=== PATIENT | female | born 1960 | race Caucasian/White ===

== ENCOUNTER → 2017-05-07 | Outpatient (CLI) | payer BC ==
--- NOTE | 2017-05-10 07:54 | MM ---
Reason for exam: screening (asymptomatic). Last mammogram was performed 1 year and 5 months ago. History: Patient is postmenopausal. Physical Findings: A clinical breast exam by your physician is recommended on an annual basis and results should be correlated with mammographic findings. MG Screening Mammo w CAD Bilateral CC and MLO view(s) were taken. Prior study comparison: December 04, 2015, mammogram, performed at [facility]. August 04, 2014, mammogram, performed at [facility]. The breast tissue is heterogeneously dense. This may lower the sensitivity of mammography. Finding: There are typically benign round calcifications in the right breast. There is no discrete abnormality. ASSESSMENT: Benign, BI-RAD 2 RECOMMENDATION: Routine screening mammogram of both breasts in 1 year.
== END | disposition home or self-care (01) ==
LOC: RADMAMWWP 16:47
PROVIDERS: ATTEND Family Medicine
DX: Z12.31 Encounter for screening mammogram for malignant neoplasm of breast (principal)

== ENCOUNTER → 2018-05-23 | Outpatient (CLI) | payer BC ==
--- NOTE | 2018-05-29 11:08 | MM ---
Reason for exam: screening (asymptomatic). Last mammogram was performed 1 year and 1 month ago. History: Patient is postmenopausal. Physical Findings: A clinical breast exam by your physician is recommended on an annual basis and results should be correlated with mammographic findings. MG 3D Screening Mammo W/Cad Bilateral CC and MLO view(s) were taken. Prior study comparison: May 07, 2017, bilateral MG screening mammo w CAD. December 04, 2015, mammogram, performed at [facility]. The breast tissue is heterogeneously dense. This may lower the sensitivity of mammography. No suspicious abnormality. No significant changes when compared with prior studies. ASSESSMENT: Negative, BI-RAD 1 RECOMMENDATION: Routine screening mammogram of both breasts in 1 year.
== END | disposition home or self-care (01) ==
LOC: RADMAMWWP 07:02
PROVIDERS: ATTEND Family Medicine
DX: Z12.31 Encounter for screening mammogram for malignant neoplasm of breast (principal)
CPT/HCPCS: 77063; 77067

== ENCOUNTER 2024-11-03 11:56 | Inpatient (IN) | payer BC ==
--- NOTE | 2024-11-03 12:36 | ED ---
General Adult HPI - General Chief complaint: Weakness Stated complaint: Weakness Time Seen by Provider: 11/03/24 11:58 Source: patient, EMS, RN notes reviewed, old records reviewed Mode of arrival: EMS Limitations: no limitations - History of Present Illness Initial comments: 64-year-old female with history of lung CA with brain metastases presenting for evaluation of generalized weakness, poor appetite, nausea. Symptoms have been progressive over the past several weeks. Patient has known brain metastases and is currently on Decadron. She just completed 10 days of whole brain radiation and is currently on oral chemotherapy. She denies fever. She does report some chills. She reports nausea and poor appetite. No chest or abdominal pain. No dysuria. Patient reports very dark urine. - Related Data Home Medications Medication Instructions Recorded Confirmed Adagrasib [Krazati] 600 mg PO BID 11/03/24 11/03/24 Ergocalciferol (Vitamin D2) 1,250 mcg PO WE 11/03/24 11/03/24 [Drisdol (50,000 Iu)] Ipratropium/Albuter 20-100Mcg 1 puff INHALATION RT-Q6H PRN MDD 6 11/03/24 11/03/24 [Combivent Respimat 20-100Mcg PUFFS Inhaler] L.acidoph,Paracasei, B.lactis 1 cap PO DAILY 11/03/24 11/03/24 [Probiotic] Levothyroxine Sodium [Synthroid] 75 mcg PO DAILY 11/03/24 11/03/24 Lisinopril-Hctz 20-25 mg 1 tab PO DAILY 11/03/24 11/03/24 [Zestoretic 20-25] Ondansetron [Zofran] 4 - 8 mg PO Q4H PRN MDD 8 tabs 11/03/24 11/03/24 Pantoprazole [Protonix] 40 mg PO DAILY 11/03/24 11/03/24 amLODIPine [Norvasc] 5 mg PO DAILY 11/03/24 11/03/24 dexAMETHasone [Decadron] See Taper PO DIRECTED 11/03/24 11/03/24 Allergies Allergy/AdvReac Type Severity Reaction Status Date / Time ceftriaxone [From Rocephin] Allergy Rash/Hives, Verified 11/03/24 12:59 Tongue swelling Review of Systems ROS Statement: Those systems with pertinent positive or pertinent negative responses have been documented in the HPI. ROS Other: All systems not noted in ROS Statement are negative. Past Medical History Past Medical History: Cancer, Hypertension, Thyroid Disorder Additional Past Medical History / Comment(s): Lung CA and brain CA as of August 2024 History of Any Multi-Drug Resistant Organisms: None Reported Past Surgical History: Hysterectomy Past Psychological History: No Psychological Hx Reported Smoking Status: Former smoker Past Alcohol Use History: Occasional Past Drug Use History: None Reported General Exam Limitations: no limitations General appearance: alert, in no apparent distress Head exam: Present: atraumatic, normocephalic Eye exam: Present: normal appearance, PERRL ENT exam: Present: mucous membranes dry Neck exam: Present: normal inspection. Absent: tenderness, meningismus Respiratory exam: Present: normal lung sounds bilaterally. Absent: respiratory distress, wheezes Cardiovascular Exam: Present: regular rate, normal rhythm GI/Abdominal exam: Present: soft. Absent: distended, tenderness, guarding Extremities exam: Present: normal inspection, normal capillary refill Neurological exam: Present: alert, oriented X3, CN II-XII intact, motor sensory deficit (Bilateral lower extremity weakness) Skin exam: Present: warm, dry, intact Course Vital Signs 11/03/24 11/03/24 12:04 13:26 Temperature 97.7 F 97.9 F Pulse Rate 84 84 Respiratory 18 20 Rate Blood Pressure 136/77 139/79 O2 Sat by Pulse 97 97 Oximetry Medical Decision Making - Medical Decision Making Was pt. sent in by a medical professional or institution (, PA, CARRIAGE OPERATOR, urgent care, hospital, or halfway...) When possible be specific @ -No Did you speak to anyone other than the patient for history (EMS, parent, family, police, friend...)? What history was obtained from this source @ -No Did you review nursing and triage notes (agree or disagree)? Why? @ -I reviewed and agree with nursing and triage notes Were old charts reviewed (outside hosp., previous admission, EMS record, old EKG, old radiological studies, urgent care reports/EKG's, halfway records)? Report findings @ -No old charts were reviewed Differential Weakness: Hypoglycemia, shock, sepsis, hyponatremia, anemia, infection, IA, ETOH, adverse medicine reaction, overdose, stroke, this is not meant to be an all-inclusive list. EKG interpreted by me (3pts min.). @ -Sinus rhythm rate of 82, UT interval 182, QRS duration 83, QTc [address] segment elevation. X-rays interpreted by me (1pt min.). @Chest x-ray there is negative for acute cardiopulmonary findings CT interpreted by me (1pt min.). @ -None done U/S interpreted by me (1pt. min.). @ -None done What testing was considered but not performed or refused? (CT, X-rays, U/S, labs)? Why? @ -None What meds were considered but not given or refused? Why? @ -None Did you discuss the management of the patient with other professionals (professionals i.e. , BRODY, CARRIAGE OPERATOR, lab, RT, psych nurse, social services assistant, awning frame maker, teacher, natural resource officer, shoe caser)? Give summary @Dr. Perea Was smoking cessation discussed for >3mins.? @ -No Was critical care preformed (if so, how long)? @ -No Were there social determinants of health that impacted care today? How? (Homelessness, low income, unemployed, alcoholism, drug addiction, transportation, low edu. Level, literacy, decrease access to med. care, halfway, rehab)? @ -No Was there de-escalation of care discussed even if they declined (Discuss DNR or withdrawal of care, Hospice)? DNR status @ -No What co-morbidities impacted this encounter? (DM, HTN, Smoking, COPD, CAD, Cancer, CVA, ARF, Chemo, Hep., AIDS, mental health diagnosis, sleep apnea, mo rbid obesity)? @ -Metastatic lung CA Was patient admitted / discharged? Hospital course, mention meds given and route, prescriptions, significant lab abnormalities, going to OR and other pertinent info. @64-year-old female presenting for evaluation of generalized weakness. Patient is currently being treated for metastatic lung cancer. She states that she has had poor oral intake and reduced urine output. Patient has a lactic acid of 4 which I suspect is from dehydration and not acute infection or sepsis. Sodium is 121. Patient is given a bolus of normal saline and placed on 100 cc/h. Brody hernandez admitted with generalized weakness, hyponatremia, dehydration. Case discussed with Dr. Perea who will admit. Undiagnosed new problem with uncertain prognosis? @ -No Drug Therapy requiring intensive monitoring for toxicity (Heparin, Nitro, Insulin, Cardizem)? @ -No Were any procedures done? @ -No Diagnosis/symptom? @ -Hyponatremia, dehydration, generalized weakness Acute, or Chronic, or Acute on Chronic? @ -Acute Uncomplicated (without systemic symptoms) or Complicated (systemic symptoms)? @ -Default Side effects of treatment? @ -No Exacerbation, Progression, or Severe Exacerbation? @ -No Poses a threat to life or bodily function? How? (Chest pain, USA, IA, pneumonia, PE, COPD, DKA, ARF, appy, cholecystitis, CVA, Diverticulitis, Homicidal, Suicidal, threat to staff... and all critical care pts) @ -Yes, electrolyte abnormality, hyponatremia, hypovolemia - Lab Data Result diagrams: 11/03/24 12:59 11/03/24 12:59 Lab Results 11/03/24 11/03/24 11/03/24 Range/Units 12:59 12:59 12:59 WBC 9.9 (3.8-10.6) k/uL RBC 3.23 L (3.80-5.40) m/uL Hgb 11.0 L (11.4-16.0) gm/dL Hct 29.3 L (34.0-46.0) % MCV 90.9 (80.0-100.0) fL MCH 34.2 (25.0-35.0) pg MCHC 37.6 H (31.0-37.0) g/dL RDW 16.8 H (11.5-15.5) % Plt Count 114 L (150-450) k/uL MPV 6.6 Neutrophils % (Manual) 77 % Band Neuts % (Manual) 7 % Lymphocytes % Not Reportable Lymphocytes % (Manual) 11 % Monocytes % Not Reportable Monocytes % (Manual) 2 % Eosinophils % Not Reportable Basophils % Not Reportable Metamyelocytes % 1 % Myelocytes % 3 % Neutrophils # Not Reportable Lymphocytes # Not Reportable Monocytes # Not Reportable Eosinophils # Not Reportable Basophils # Not Reportable Nucleated RBCs 0 (0-0) /100 WBC Manual Slide Review Performed Hyperchromasia Slight Anisocytosis Slight PT 10.1 (10.0-12.5) sec INR 0.9 (<1.2) APTT 18.0 L (22.0-30.0) sec Sodium 121 L (137-145) mmol/L Potassium 4.7 (3.5-5.1) mmol/L Chloride 89 L (98-107) mmol/L Carbon Dioxide 19 L (22-30) mmol/L Anion Gap 13 mmol/L BUN 31 H (7-17) mg/dL Creatinine 0.57 (0.52-1.04) mg/dL Est GFR (CKD-EPI)AfAm >90 (>60 ml/min/1.73 sqM) Est GFR (CKD-EPI)NonAf >90 (>60 ml/min/1.73 sqM) Glucose 192 H (74-99) mg/dL Plasma Lactic Acid Wily (0.7-2.0) mmol/L Calcium 9.4 (8.4-10.2) mg/dL Magnesium 2.5 H (1.6-2.3) mg/dL Total Bilirubin 1.7 H (0.2-1.3) mg/dL AST 27 (14-36) U/L ALT 49 H (4-34) U/L Alkaline Phosphatase 40 (38-126) U/L Troponin I (0.000-0.034) ng/mL Total Protein 6.5 (6.3-8.2) g/dL Albumin 4.5 (3.5-5.0) g/dL Influenza Type A (PCR) (Not Detectd) Influenza Type B (PCR) (Not Detectd) RSV (PCR) (Not Detectd) SARS-CoV-2 (PCR) (Not Detectd) 11/03/24 11/03/24 11/03/24 Range/Units 12:59 12:59 12:59 WBC (3.8-10.6) k/uL RBC (3.80-5.40) m/uL Hgb (11.4-16.0) gm/dL Hct (34.0-46.0) % MCV (80.0-100.0) fL MCH (25.0-35.0) pg MCHC (31.0-37.0) g/dL RDW (11.5-15.5) % Plt Count (150-450) k/uL MPV Neutrophils % (Manual) % Band Neuts % (Manual) % Lymphocytes % Lymphocytes % (Manual) % Monocytes % Monocytes % (Manual) % Eosinophils % Basophils % Metamyelocytes % % Myelocytes % % Neutrophils # Lymphocytes # Monocytes # Eosinophils # Basophils # Nucleated RBCs (0-0) /100 WBC Manual Slide Review Hyperchromasia Anisocytosis PT (10.0-12.5) sec INR (<1.2) APTT (22.0-30.0) sec Sodium (137-145) mmol/L Potassium (3.5-5.1) mmol/L Chloride (98-107) mmol/L Carbon Dioxide (22-30) mmol/L Anion Gap mmol/L BUN (7-17) mg/dL Creatinine (0.52-1.04) mg/dL Est GFR (CKD-EPI)AfAm (>60 ml/min/1.73 sqM) Est GFR (CKD-EPI)NonAf (>60 ml/min/1.73 sqM) Glucose (74-99) mg/dL Plasma Lactic Acid Wily 4.0 H* (0.7-2.0) mmol/L Calcium (8.4-10.2) mg/dL Magnesium (1.6-2.3) mg/dL Total Bilirubin (0.2-1.3) mg/dL AST (14-36) U/L ALT (4-34) U/L Alkaline Phosphatase (38-126) U/L Troponin I <0.012 (0.000-0.034) ng/mL Total Protein (6.3-8.2) g/dL Albumin (3.5-5.0) g/dL Influenza Type A (PCR) Not Detected (Not Detectd) Influenza Type B (PCR) Not Detected (Not Detectd) RSV (PCR) Not Detected (Not Detectd) SARS-CoV-2 (PCR) Not Detected (Not Detectd) Disposition Clinical Impression: Hyponatremia, Dehydration Disposition: ADMITTED IP TO THIS [facility] Condition: Stable Is patient prescribed a controlled substance at d/c from ED?: No Referrals: Nonstaff,Physician [Primary Care Provider] - 1-2 days Time of Disposition: 14:26
[2024-11-03 13:11] LABS: Anisocytosis Slight; HCT 29.3 % (34.0-46.0); Hyperchromasia Slight; MCH 34.2 pg (25.0-35.0); MCHC 37.6 g/dL (31.0-37.0); MCV 90.9 fL (80.0-100.0); Mean Platelet Volume 6.6; Platelet Count 114 k/uL (150-450); RBC 3.23 m/uL (3.80-5.40); RDW 16.8 % (11.5-15.5); WBC 9.9 k/uL (3.8-10.6)
[2024-11-03 13:21] LABS: African American GFR (CKD) >90 (>60 ml/min/1.73 sqM); Albumin 4.5 g/dL (3.5-5.0); Anion Gap 13 mmol/L; Blood Urea Nitrogen 31 mg/dL (7-17); Calcium 9.4 mg/dL (8.4-10.2); Carbon Dioxide 19 mmol/L (22-30); Chloride 89 mmol/L (98-107); Glucose 192 mg/dL (74-99); Non-African American GFR(CKD) >90 (>60 ml/min/1.73 sqM); Sodium 121 mmol/L (137-145); Total Bilirubin 1.7 mg/dL (0.2-1.3); Total Protein 6.5 g/dL (6.3-8.2)
--- NOTE | 2024-11-03 13:23 | XR ---
EXAMINATION TYPE: XR chest 2V DATE OF EXAM: 11/03/2024 CLINICAL HISTORY: Weakness TECHNIQUE: Frontal and lateral views of the chest are obtained. COMPARISON: Outside chest x-ray 2010 FINDINGS: There is new left subclavian Mediport catheter terminating before the SVC. Overlying EKG le ads are present. There is no focal air space opacity, pleural effusion, or pneumothorax seen. The ca rdiac silhouette size is within normal limits. The osseous structures are intact. IMPRESSION: No acute cardiopulmonary process. [facility], , 11/03/2024 1:20 PM
[2024-11-03] MEDS: SODIUM CHLORIDE 0.9% 1,000 ML IV STA (13:25)
[2024-11-03 13:28] LABS: INR 0.9 (<1.2); Prothrombin Time 10.1 sec (10.0-12.5)
[2024-11-03 13:29] LABS: ALT 49 U/L (4-34); AST 27 U/L (14-36); Alkaline Phosphatase 40 U/L (38-126); Magnesium 2.5 mg/dL (1.6-2.3); Potassium 4.7 mmol/L (3.5-5.1)
[2024-11-03 13:44] LABS: Influenza A Not Detected (Not Detectd); Influenza B Not Detected (Not Detectd); RSV Not Detected (Not Detectd)
[2024-11-03 14:07] LABS: Band Neutrophils % 7 %; Metamyelocytes % 1 %; Myelocytes % 3 %; Neutrophils % (M) 77 %; Nucleated Red Blood Cells 0 /100 WBC (0-0); Total Cells Counted 200
[2024-11-03] MEDS: SODIUM CHLORIDE 0.9% 1,000 ML IV SCH (14:10)
[2024-11-03] MEDS ORDERED: NALOXONE 0.4 MG/ML 1 ML VIAL IV PRN (14:21)
[2024-11-03 14:55] LABS: Appearance,Urine Clear (Clear); Bilirubin,Urine Negative (Negative); Blood,Urine Negative (Negative); Color,Urine Colorless; Glucose,Urine (UA) Negative (Negative); Ketones,Urine Negative (Negative); Leukocyte Esterase,Urine Negative (Negative); Nitrite,Urine Negative (Negative); Protein,Urine Negative (Negative); Urobilinogen,Urine <2.0 mg/dL (<2.0)
--- NOTE | 2024-11-03 20:43 | P.HPIM ---
Review of Systems This is a pleasant 64 years old female with past medical history of metastatic lung cancer Presents because of generalized weakness x 6 weeks, she states her weakness started after she was started on steroids and got treatment for shingles. She feels nausea but no vomiting or diarrhea, no urinary complaint No chest pain dyspnea or coughing No headache dizziness or unilateral weakness Patient able to walk by self Patient feels little of stomach upset from the steroids Patient states that she fell last Sunday about 2 days ago Patient currently is afebrile Vital stable Labs including CBC, LFT mildly elevated with bilirubin 1.7, BMP is unremarkable except for low sodium of 121 INR and troponin are negative Influenza A and type B, RSV, SARS (coronavirus) are undetected lactic acid of 4.0 Chest x-ray showing no acute process EKG showing sinus rhythm at [address]-T changes Past Medical History Past Medical History: Cancer, Hypertension, Thyroid Disorder Additional Past Medical History / Comment(s): Lung CA and brain CA as of August 2024 History of Any Multi-Drug Resistant Organisms: None Reported Past Surgical History: Hysterectomy Past Psychological History: No Psychological Hx Reported Smoking Status: Former smoker Past Alcohol Use History: Occasional Past Drug Use History: None Reported Medications and Allergies Home Medications Medication Instructions Recorded Confirmed Type Adagrasib [Krazati] 600 mg PO BID 11/03/24 11/03/24 History Ergocalciferol (Vitamin D2) 1,250 mcg PO WE 11/03/24 11/03/24 History [Drisdol (50,000 Iu)] Ipratropium/Albuter 20-100Mcg 1 puff INHALATION RT-Q6H PRN MDD 6 11/03/24 11/03/24 History [Combivent Respimat 20-100Mcg PUFFS Inhaler] L.acidoph,Paracasei, B.lactis 1 cap PO DAILY 11/03/24 11/03/24 History [Probiotic] Levothyroxine Sodium [Synthroid] 75 mcg PO DAILY 11/03/24 11/03/24 History Lisinopril-Hctz 20-25 mg 1 tab PO DAILY 11/03/24 11/03/24 History [Zestoretic 20-25] Ondansetron [Zofran] 4 - 8 mg PO Q4H PRN MDD 8 tabs 11/03/24 11/03/24 History Pantoprazole [Protonix] 40 mg PO DAILY 11/03/24 11/03/24 History amLODIPine [Norvasc] 5 mg PO DAILY 11/03/24 11/03/24 History dexAMETHasone [Decadron] See Taper PO DIRECTED 11/03/24 11/03/24 History Allergies Allergy/AdvReac Type Severity Reaction Status Date / Time ceftriaxone [From Rocephin] Allergy Rash/Hives, Verified 11/03/24 12:59 Tongue swelling Physical Exam Vitals: Vital Signs Temp Pulse Resp BP Pulse Ox 11/03/24 18:29 97.9 F 84 18 118/59 96 11/03/24 17:25 98 F 93 18 142/52 11/03/24 15:56 91 18 128/69 96 11/03/24 13:26 97.9 F 84 20 139/79 97 11/03/24 12:04 97.7 F 84 18 136/77 97 Intake and Output 11/03/24 11/03/24 11/03/24 06:59 14:59 22:59 Other: Weight 69.853 kg -GENERAL: The patient is alert and oriented x3, not in any acute distress. Well developed, well nourished. Generally weak HEENT: Pupils are round and equally reacting to light. EOMI. No scleral icterus. No conjunctival pallor. Normocephalic, atraumatic. No pharyngeal erythema. No thyromegaly. CARDIOVASCULAR: S1 and S2 present. No murmurs, rubs, or gallops. PULMONARY: Chest is clear to auscultation, no wheezing , no crackles. ABDOMEN: Soft, nontender, nondistended, normoactive bowel sounds. No palpable organomegaly. MUSCULOSKELETAL: No joint swelling or deformity. EXTREMITIES: No cyanosis, clubbing, or pedal edema. NEUROLOGICAL: Gross neurological examination did not reveal any focal deficits. SKIN: No rashes. no petechiae. Results CBC & Chem 7: 11/03/24 12:59 11/03/24 12:59 Labs: Abnormal Lab Results - Last 24 Hours (Table) 11/03/24 11/03/24 11/03/24 Range/Units 12:59 12:59 12:59 RBC 3.23 L (3.80-5.40) m/uL Hgb 11.0 L (11.4-16.0) gm/dL Hct 29.3 L (34.0-46.0) % MCHC 37.6 H (31.0-37.0) g/dL RDW 16.8 H (11.5-15.5) % Plt Count 114 L (150-450) k/uL APTT 18.0 L (22.0-30.0) sec Sodium 121 L (137-145) mmol/L Chloride 89 L (98-107) mmol/L Carbon Dioxide 19 L (22-30) mmol/L BUN 31 H (7-17) mg/dL Glucose 192 H (74-99) mg/dL Plasma Lactic Acid Wily (0.7-2.0) mmol/L Magnesium 2.5 H (1.6-2.3) mg/dL Total Bilirubin 1.7 H (0.2-1.3) mg/dL ALT 49 H (4-34) U/L 11/03/24 11/03/24 Range/Units 12:59 15:44 RBC (3.80-5.40) m/uL Hgb (11.4-16.0) gm/dL Hct (34.0-46.0) % MCHC (31.0-37.0) g/dL RDW (11.5-15.5) % Plt Count (150-450) k/uL APTT (22.0-30.0) sec Sodium (137-145) mmol/L Chloride (98-107) mmol/L Carbon Dioxide (22-30) mmol/L BUN (7-17) mg/dL Glucose (74-99) mg/dL Plasma Lactic Acid Wily 4.0 H* 4.2 H* (0.7-2.0) mmol/L Magnesium (1.6-2.3) mg/dL Total Bilirubin (0.2-1.3) mg/dL ALT (4-34) U/L Assessment and Plan Assessment: Generalized weakness with fall about 2 days prior to hospitalization without syncope hyponatremia, hypovolemic Elevated lactic acid Metastatic lung cancer status post recent radiation and chemotherapy Plan: Continue with normal saline Monitor sodium Check urine osmolality and sodium Nephrology consult Hematology/oncology team consult Labs and medication were reviewed.. Continue same treatment. Continue with symptomatic treatment. Resume home medication. Monitor labs and vitals. DVT and GI prophylaxis. Further recommendations as per clinical course of the patient DVT prophylaxis: Subcutaneous heparin GI Prophylaxis: Pepcid PT/OT: Pending Prognosis is guarded
[2024-11-03 21:21] LABS: Potassium 4.3 mmol/L (3.5-5.1)
[2024-11-03] MEDS: dexAMETHasone 4 MG TAB PO SCH (23:15)
[2024-11-04] MEDS: LEVOTHYROXINE 75 MCG TAB PO SCH (06:11)
[2024-11-04 08:27] LABS: Anisocytosis Slight; HCT 26.8 % (34.0-46.0); HGB 9.7 gm/dL (11.4-16.0); MCH 33.8 pg (25.0-35.0); MCHC 36.3 g/dL (31.0-37.0); MCV 93.1 fL (80.0-100.0); Mean Platelet Volume 6.8; RBC 2.87 m/uL (3.80-5.40); RDW 16.9 % (11.5-15.5); WBC 7.2 k/uL (3.8-10.6)
[2024-11-04 08:36] LABS: African American GFR (CKD) >90 (>60 ml/min/1.73 sqM); Anion Gap 7 mmol/L; Blood Urea Nitrogen 28 mg/dL (7-17); Calcium 8.8 mg/dL (8.4-10.2); Carbon Dioxide 24 mmol/L (22-30); Chloride 97 mmol/L (98-107); Glucose 212 mg/dL (74-99); Non-African American GFR(CKD) >90 (>60 ml/min/1.73 sqM); Potassium 4.6 mmol/L (3.5-5.1); Sodium 128 mmol/L (137-145)
[2024-11-04 08:56] LABS: Blood Urea Nitrogen 25.4 mg/dL (9.0-27.0); Calcium 8.3 mg/dL (8.7-10.3); Carbon Dioxide 20.5 mmol/L (21.6-31.8); Chloride 98 mmol/L (96-109); Glucose 215 mg/dL (70-110); Potassium 4.6 mmol/L (3.5-5.5); Sodium 130 mmol/L (135-145)
[2024-11-04] MEDS ORDERED: LISINOPRIL-HCTZ 20-25 MG 1 EACH TAB PO SCH (09:00)
[2024-11-04 09:32] LABS: Metamyelocytes # (M) 0.07 k/uL (0); Metamyelocytes % 1 %; Nucleated Red Blood Cells 0 /100 WBC (0-0)
[2024-11-04 09:39] LABS: Basophils # (M) 0.07 X 10*3/uL (0.00-0.10); Eosinophils # (M) 0 X 10*3/uL (0.04-0.35); HCT 24.3 % (37.2-46.3); Immature Platelet Fraction 1.3 % (1.1-6.1); Lymphocytes # (M) 0.21 X 10*3/uL (0.90-5.00); MCH 33.5 pg (27.0-32.0); MCV 90.3 FL (80.0-97.0); Mean Platelet Volume 8.8 FL (9.5-12.2); Metamyelocytes % 4 % (0-0); Monocytes # (M) 0.28 X 10*3/uL (0.20-1.00); Myelocytes % 1 % (0-0); Neutrophils # (M) 6.16 X 10*3/uL (1.80-7.70); Neutrophils % (M) 87 %; Nucleated Red Blood Cells 3 /100 WBCS; Platelet Count 85 X 10*3/uL (140-440); RBC 2.69 X 10*6/uL (4.10-5.20); RDW 17.2 % (11.5-14.5); WBC 7.08 X 10*3/uL (4.50-10.00)
[2024-11-04] MEDS: PANTOPRAZOLE 40 MG TABLET PO SCH (10:20)
[2024-11-04] MEDS: amLODIPine 5 MG TAB PO SCH (10:20)
[2024-11-04 10:21] LABS: Band Neutrophils % 2 %; Lymphocytes # (M) 0.79 k/uL (1.0-4.8); Monocytes # (M) 0.29 k/uL (0-1.0); Myelocytes # (M) 0.22 k/uL (0); Myelocytes % 3 %; Neutrophils % (M) 81 %; Total Cells Counted 200
[2024-11-04 10:36] LABS: Platelet Count 90 k/uL (150-450)
[2024-11-04] MEDS: [UNRECOGNIZED DRUG - OTHER] PO SCH (10:45)
[2024-11-04] MEDS: SODIUM CHLORIDE 0.9% 1,000 ML IV SCH (12:38)
[2024-11-04] MEDS: CALCIUM CARBONATE 500 MG CHEWABLE PO PRN (15:16)
--- NOTE | 2024-11-04 15:40 | P.NPCON ---
History of Present Illness - Reason for Consult hyponatremia - History of Present Illness Patient is a 64-year-old female with history of metastatic lung cancer who was admitted to the hospital with history of increased weakness and inability to ambulate. Patient states that she has been on steroids for 2 months now for brain metastasis and significant leg weakness. She has not been able to come off of the steroids. Patient reports hospitalization in September at [facility] with low sodium. It appears that the patient was initially given fluids but then asked to restrict fluids upon discharge. During this admission patient is found to be volume depleted and was started on normal saline. Serum sodium was 121 on admission and improved to 130 with normal saline.. Subsequently dropped down to 128 this morning and 124 now. Normal saline has been discontinued. No symptoms of numbness tingling or weakness. Urine osmolality and urine sodium is pending. No history of nausea vomiting or diarrhea. No hypotension noted on admission. Past Medical History Past Medical History: Cancer, Hypertension, Thyroid Disorder Additional Past Medical History / Comment(s): Lung CA with mets to brain as of August 2024 History of Any Multi-Drug Resistant Organisms: None Reported Past Surgical History: Hysterectomy Past Psychological History: No Psychological Hx Reported Smoking Status: Former smoker Past Alcohol Use History: Occasional Past Drug Use History: None Reported Medications and Allergies Home Medications Medication Instructions Recorded Confirmed Type Adagrasib [Krazati] 600 mg PO BID 11/03/24 11/03/24 History Ergocalciferol (Vitamin D2) 1,250 mcg PO WE 11/03/24 11/03/24 History [Drisdol (50,000 Iu)] Ipratropium/Albuter 20-100Mcg 1 puff INHALATION RT-Q6H PRN MDD 6 11/03/24 11/03/24 History [Combivent Respimat 20-100Mcg PUFFS Inhaler] L.acidoph,Paracasei, B.lactis 1 cap PO DAILY 11/03/24 11/03/24 History [Probiotic] Levothyroxine Sodium [Synthroid] 75 mcg PO DAILY 11/03/24 11/03/24 History Lisinopril-Hctz 20-25 mg 1 tab PO DAILY 11/03/24 11/03/24 History [Zestoretic 20-25] Ondansetron [Zofran] 4 - 8 mg PO Q4H PRN MDD 8 tabs 11/03/24 11/03/24 History Pantoprazole [Protonix] 40 mg PO DAILY 11/03/24 11/03/24 History amLODIPine [Norvasc] 5 mg PO DAILY 11/03/24 11/03/24 History dexAMETHasone [Decadron] See Taper PO DIRECTED 11/03/24 11/03/24 History Allergies Allergy/AdvReac Type Severity Reaction Status Date / Time ceftriaxone [From Rocephin] Allergy Rash/Hives, Verified 11/03/24 12:59 Tongue swelling Physical Exam Vitals: Vital Signs Temp Pulse Pulse Resp BP BP BP 11/04/24 13:23 97.9 F 84 16 118/66 11/04/24 07:33 97.4 F L 84 16 120/57 11/04/24 06:39 90 16 132/73 11/04/24 04:00 84 18 116/73 11/04/24 00:55 77 18 108/70 11/03/24 22:55 77 19 109/65 11/03/24 20:38 86 18 111/67 11/03/24 18:29 97.9 F 84 18 118/59 11/03/24 17:25 98 F 93 18 142/52 11/03/24 15:56 91 18 128/69 Pulse Ox 11/04/24 13:23 96 11/04/24 07:33 97 11/04/24 06:39 98 11/04/24 04:00 95 11/04/24 00:55 96 11/03/24 22:55 96 11/03/24 20:38 97 11/03/24 18:29 96 11/03/24 17:25 11/03/24 15:56 96 Intake and Output 11/04/24 11/04/24 11/04/24 06:59 14:59 22:59 Other: Weight 69.853 kg Patient is awake, comfortable, no acute distress. Examination of the heart S1 and S2 Examination of the lungs bilateral breath sounds are heard Abdomen is soft nontender Examination lower extremities shows no significant edema. 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 Hyponatremia initially hypovolemic and improved with saline. 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 Urine sodium and urine osmolality is pending. I will proceed with Samsca. Patient should continue with fluid restriction now that hypovolemia has been corrected. 2. Metastatic lung cancer with mets to the brain 3. Hypothyroidism maintained on supplementation Plan: Continue off of normal saline Samsca x 1 Maintain fluid restriction Repeat sodium this evening. Thank you for the consultation. We will continue to follow the patient with you during her hospitalization
[2024-11-04] MEDS: TOLVAPTAN 15 MG TABLET PO ONE (17:23)
--- NOTE | 2024-11-04 21:15 | P.PN ---
Subjective This is a pleasant 64 years old female with past medical history of metastatic lung cancer Presents because of generalized weakness x 6 weeks, she states her weakness started after she was started on steroids and got treatment for shingles. She feels nausea but no vomiting or diarrhea, no urinary complaint No chest pain dyspnea or coughing No headache dizziness or unilateral weakness Patient able to walk by self Patient feels little of stomach upset from the steroids Patient states that she fell last Sunday about 2 days ago Patient currently is afebrile Vital stable Labs including CBC, LFT mildly elevated with bilirubin 1.7, BMP is unremarkable except for low sodium of 121 INR and troponin are negative Influenza A and type B, RSV, SARS (coronavirus) are undetected lactic acid of 4.0 Chest x-ray showing no acute process EKG showing sinus rhythm at [address]-T changes 11/04/24 Patient who presents initially with weakness and found to have hyponatremia, her sodium improved initially with normal saline fluid, however started to decrease again. Patient states little improvement in her weakness. She stayed in bed most of the time. Urine sodium and osmolality pending Normal saline was stopped Patient started on given 1 dose of Samsca x 1 by nephrology team Objective - Vital Signs Vital signs: Vital Signs Temp 97.9 F 11/04/24 13:23 Pulse 84 11/04/24 13:23 Resp 16 11/04/24 13:23 BP 118/66 11/04/24 13:23 Pulse Ox 96 11/04/24 13:23 FiO2 Intake & Output 11/03/24 11/04/24 11/04/24 18:59 06:59 18:59 Weight 69.853 kg 69.853 kg - Exam GENERAL: The patient is alert and oriented x3, not in any acute distress. Well developed, well nourished. HEENT: Pupils are round and equally reacting to light. EOMI. No scleral icterus. No conjunctival pallor. Normocephalic, atraumatic. No pharyngeal erythema. No thyromegaly. CARDIOVASCULAR: S1 and S2 present. No murmurs, rubs, or gallops. PULMONARY: Chest is clear to auscultation, no wheezing , no crackles. ABDOMEN: Soft, nontender, nondistended, normoactive bowel sounds. No palpable organomegaly. MUSCULOSKELETAL: No joint swelling or deformity. EXTREMITIES: No cyanosis, clubbing, or pedal edema. NEUROLOGICAL: Gross neurological examination did not reveal any focal deficits. SKIN: No rashes. no petechiae. - Labs CBC & Chem 7: 11/04/24 07:55 11/04/24 15:02 Labs: Abnormal Lab Results - Last 24 Hours (Table) 11/03/24 11/03/24 11/03/24 Range/Units 15:44 20:31 20:40 RBC (4.10-5.20) X 10*6/uL Hgb (12.0-15.0) g/dL Hct (37.2-46.3) % MCH (27.0-32.0) pg RDW (11.5-14.5) % Plt Count (140-440) X 10*3/uL MPV (9.5-12.2) FL Lymphocytes # (Manual) (0.90-5.00) X 10*3/uL Eosinophils # (Manual) (0.04-0.35) X 10*3/uL Metamyelocytes # (Man) (0) k/uL Myelocytes # (Manual) (0) k/uL NRBC/100 WBC Diff (0.00-0.01) X 10*3/uL Sodium 125 L (137-145) mmol/L Chloride 95 L (98-107) mmol/L Carbon Dioxide 20 L (22-30) mmol/L BUN (7-17) mg/dL Creatinine (0.6-1.5) mg/dL BUN/Creatinine Ratio (12.00-20.00) Ratio Glucose (70-110) mg/dL Plasma Lactic Acid Wily 4.2 H* 4.2 H* (0.7-2.0) mmol/L Calcium (8.7-10.3) mg/dL 11/03/24 11/04/24 11/04/24 Range/Units 23:50 03:57 03:57 RBC 2.69 L (4.10-5.20) X 10*6/uL Hgb 9.0 L (12.0-15.0) g/dL Hct 24.3 L (37.2-46.3) % MCH 33.5 H (27.0-32.0) pg RDW 17.2 H (11.5-14.5) % Plt Count 85 L (140-440) X 10*3/uL MPV 8.8 L (9.5-12.2) FL Lymphocytes # (Manual) 0.21 L (0.90-5.00) X 10*3/uL Eosinophils # (Manual) 0 L (0.04-0.35) X 10*3/uL Metamyelocytes # (Man) (0) k/uL Myelocytes # (Manual) (0) k/uL NRBC/100 WBC Diff 0.10 H (0.00-0.01) X 10*3/uL Sodium 130 L (137-145) mmol/L Chloride (98-107) mmol/L Carbon Dioxide 20.5 L (22-30) mmol/L BUN (7-17) mg/dL Creatinine 0.5 L (0.6-1.5) mg/dL BUN/Creatinine Ratio 50.80 H (12.00-20.00) Ratio Glucose 215 H (70-110) mg/dL Plasma Lactic Acid Wily 3.9 H* (0.7-2.0) mmol/L Calcium 8.3 L (8.7-10.3) mg/dL 11/04/24 11/04/24 11/04/24 Range/Units 03:57 07:55 07:55 RBC 2.87 L (4.10-5.20) X 10*6/uL Hgb 9.7 L (12.0-15.0) g/dL Hct 26.8 L (37.2-46.3) % MCH (27.0-32.0) pg RDW 16.9 H (11.5-14.5) % Plt Count 90 L (140-440) X 10*3/uL MPV (9.5-12.2) FL Lymphocytes # (Manual) 0.79 L (0.90-5.00) X 10*3/uL Eosinophils # (Manual) (0.04-0.35) X 10*3/uL Metamyelocytes # (Man) 0.07 H (0) k/uL Myelocytes # (Manual) 0.22 H (0) k/uL NRBC/100 WBC Diff (0.00-0.01) X 10*3/uL Sodium 128 L (137-145) mmol/L Chloride 97 L (98-107) mmol/L Carbon Dioxide (22-30) mmol/L BUN 28 H (7-17) mg/dL Creatinine (0.6-1.5) mg/dL BUN/Creatinine Ratio (12.00-20.00) Ratio Glucose 212 H (70-110) mg/dL Plasma Lactic Acid Wily 2.9 H* (0.7-2.0) mmol/L Calcium (8.7-10.3) mg/dL 11/04/24 11/04/24 Range/Units 09:01 12:11 RBC (4.10-5.20) X 10*6/uL Hgb (12.0-15.0) g/dL Hct (37.2-46.3) % MCH (27.0-32.0) pg RDW (11.5-14.5) % Plt Count (140-440) X 10*3/uL MPV (9.5-12.2) FL Lymphocytes # (Manual) (0.90-5.00) X 10*3/uL Eosinophils # (Manual) (0.04-0.35) X 10*3/uL Metamyelocytes # (Man) (0) k/uL Myelocytes # (Manual) (0) k/uL NRBC/100 WBC Diff (0.00-0.01) X 10*3/uL Sodium (137-145) mmol/L Chloride (98-107) mmol/L Carbon Dioxide (22-30) mmol/L BUN (7-17) mg/dL Creatinine (0.6-1.5) mg/dL BUN/Creatinine Ratio (12.00-20.00) Ratio Glucose (70-110) mg/dL Plasma Lactic Acid Wily 2.9 H* 2.2 H* (0.7-2.0) mmol/L Calcium (8.7-10.3) mg/dL Assessment and Plan Assessment: Generalized weakness with fall about 2 days prior to hospitalization without syncope hyponatremia, hypovolemic, improved. 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 Continue same treatment. Continue with symptomatic treatment. Resume home medication. Monitor labs and vitals. DVT and GI prophylaxis. Further recommendations as per clinical course of the patient DVT prophylaxis: Subcutaneous heparin GI Prophylaxis: Pepcid PT/OT: Pending Prognosis is guarded
--- NOTE | 2024-11-04 21:55 | P.CONS ---
History of Present Illness - Reason for Consult Consult date: 11/04/24 lung cancer Requesting physician: Huang Frazier - Chief Complaint weakness, nausea - History of Present Illness Patient is a 64 year old female with a significant history of non small cell lung cancer who follows with Dr. Mcconnell. She was diagnosed with R hilar mass after she presented with abdominal pain & diarrhea. CT Scan of CAP at [facility] in December 2023 revealed 2.5 cm R hilar mass/Lymph node. She was evaluated by Dr Hamm > Bronchoscopy was negative. PET Scan: increased uptake in R hilar lesion, but no other suspicious sites. The patient was seen by Dr Tapia, had EBUS with Bx on 03/27/24 revealing NSCLC C/W Adenocarcinoma.NGS studies revealed K-TERRELL G12C mutation. She was then evaluated by Dr Singh, treated with concurrent Radiation therapy/Chemotherapy (Weekly Carboplatinum+Taxol). She had CT Scan of chest on 08/19/24 at [facility] revealed stable disease, had ground glass RLL changes C/W radiation changes. She was then seen in our clinic for 2nd opinion at patient's request. Started Darvolumab infusion on 2023 and developed progressive Psoriasis. She then was hospitalized at [facility] with left leg weakness, CT Scan of head and then MRI showed multiple bilateral brain mets. She was started on IV Decadron and followed up with rad onc, and has since completed WBRT. Currently on dex taper, 4mg BID. She started Krazati on 10/29. Patient presented to the emergency room with progressing weakness over the last 1 week, decreased appetite and nausea. Patient states nausea has since subsided but decreased oral intake has persisted due to taste changes. On admit chest x- ray was negative for acute cardiopulmonary process. Sodium was noted at 121. Has since improved, 128 today. Of note she has previously been seen for the same and is currently on 1.5 L fluid restriction. Lactic acid elevated at 3.9 on admit. Viral panel and UA negative. Pt afebrile, HDS. WBC 7.2, hemoglobin 9.7, platelets 90,000. Creatinine 0.58, GFR greater than 90. At today's visit patient is reporting feeling some improvement in symptoms since admission. Review of Systems 10 point ROS is negative except as stated in the HPI Past Medical History Past Medical History: Cancer, Hypertension, Thyroid Disorder Additional Past Medical History / Comment(s): Lung CA with mets to brain as of August 2024 History of Any Multi-Drug Resistant Organisms: None Reported Past Surgical History: Hysterectomy Past Psychological History: No Psychological Hx Reported Smoking Status: Former smoker Past Alcohol Use History: Occasional Past Drug Use History: None Reported Medications and Allergies Home Medications Medication Instructions Recorded Confirmed Type Adagrasib [Krazati] 600 mg PO BID 11/03/24 11/03/24 History Ergocalciferol (Vitamin D2) 1,250 mcg PO WE 11/03/24 11/03/24 History [Drisdol (50,000 Iu)] Ipratropium/Albuter 20-100Mcg 1 puff INHALATION RT-Q6H PRN MDD 6 11/03/24 11/03/24 History [Combivent Respimat 20-100Mcg PUFFS Inhaler] L.acidoph,Paracasei, B.lactis 1 cap PO DAILY 11/03/24 11/03/24 History [Probiotic] Levothyroxine Sodium [Synthroid] 75 mcg PO DAILY 11/03/24 11/03/24 History Lisinopril-Hctz 20-25 mg 1 tab PO DAILY 11/03/24 11/03/24 History [Zestoretic 20-25] Ondansetron [Zofran] 4 - 8 mg PO Q4H PRN MDD 8 tabs 11/03/24 11/03/24 History Pantoprazole [Protonix] 40 mg PO DAILY 11/03/24 11/03/24 History amLODIPine [Norvasc] 5 mg PO DAILY 11/03/24 11/03/24 History dexAMETHasone [Decadron] See Taper PO DIRECTED 11/03/24 11/03/24 History Allergies Allergy/AdvReac Type Severity Reaction Status Date / Time ceftriaxone [From Rocephin] Allergy Rash/Hives, Verified 11/03/24 12:59 Tongue swelling Physical Exam Vitals: Vital Signs Temp Pulse Pulse Resp BP BP Pulse Ox 11/04/24 07:33 97.4 F L 84 16 120/57 97 11/04/24 06:39 90 16 132/73 98 11/04/24 04:00 84 18 116/73 95 11/04/24 00:55 77 18 108/70 96 11/03/24 22:55 77 19 109/65 96 11/03/24 20:38 86 18 111/67 97 11/03/24 18:29 97.9 F 84 18 118/59 96 11/03/24 17:25 98 F 93 18 142/52 11/03/24 15:56 91 18 128/69 96 11/03/24 13:26 97.9 F 84 20 139/79 97 Intake and Output 11/03/24 11/04/24 11/04/24 22:59 06:59 14:59 Other: Weight 69.853 kg - Constitutional General appearance: average body habitus, no acute distress - EENT Eyes: anicteric sclerae, EOMI ENT: hearing grossly normal - Respiratory Respiratory: bilateral: CTA - Cardiovascular Rhythm: regular - Gastrointestinal General gastrointestinal: soft, no tenderness - Integumentary Integumentary: no cyanotic - Musculoskeletal Musculoskeletal: generalized weakness - Psychiatric Psychiatric: A&O x's 3 Results CBC & Chem 7: 11/04/24 07:55 11/04/24 15:02 Labs: Abnormal Lab Results - Last 24 Hours (Table) 11/03/24 11/03/24 11/03/24 Range/Units 12:59 12:59 12:59 RBC 3.23 L (3.80-5.40) m/uL Hgb 11.0 L (11.4-16.0) gm/dL Hct 29.3 L (34.0-46.0) % MCH (27.0-32.0) pg MCHC 37.6 H (31.0-37.0) g/dL RDW 16.8 H (11.5-15.5) % Plt Count 114 L (150-450) k/uL MPV (9.5-12.2) FL Lymphocytes # (Manual) (0.90-5.00) X 10*3/uL Eosinophils # (Manual) (0.04-0.35) X 10*3/uL Metamyelocytes # (Man) (0) k/uL Myelocytes # (Manual) (0) k/uL NRBC/100 WBC Diff (0.00-0.01) X 10*3/uL APTT 18.0 L (22.0-30.0) sec Sodium 121 L (137-145) mmol/L Chloride 89 L (98-107) mmol/L Carbon Dioxide 19 L (22-30) mmol/L BUN 31 H (7-17) mg/dL Creatinine (0.6-1.5) mg/dL BUN/Creatinine Ratio (12.00-20.00) Ratio Glucose 192 H (74-99) mg/dL Plasma Lactic Acid Wily (0.7-2.0) mmol/L Calcium (8.7-10.3) mg/dL Magnesium 2.5 H (1.6-2.3) mg/dL Total Bilirubin 1.7 H (0.2-1.3) mg/dL ALT 49 H (4-34) U/L 11/03/24 11/03/24 11/03/24 Range/Units 12:59 15:44 20:31 RBC (3.80-5.40) m/uL Hgb (11.4-16.0) gm/dL Hct (34.0-46.0) % MCH (27.0-32.0) pg MCHC (31.0-37.0) g/dL RDW (11.5-15.5) % Plt Count (150-450) k/uL MPV (9.5-12.2) FL Lymphocytes # (Manual) (0.90-5.00) X 10*3/uL Eosinophils # (Manual) (0.04-0.35) X 10*3/uL Metamyelocytes # (Man) (0) k/uL Myelocytes # (Manual) (0) k/uL NRBC/100 WBC Diff (0.00-0.01) X 10*3/uL APTT (22.0-30.0) sec Sodium (137-145) mmol/L Chloride (98-107) mmol/L Carbon Dioxide (22-30) mmol/L BUN (7-17) mg/dL Creatinine (0.6-1.5) mg/dL BUN/Creatinine Ratio (12.00-20.00) Ratio Glucose (74-99) mg/dL Plasma Lactic Acid Wily 4.0 H* 4.2 H* 4.2 H* (0.7-2.0) mmol/L Calcium (8.7-10.3) mg/dL Magnesium (1.6-2.3) mg/dL Total Bilirubin (0.2-1.3) mg/dL ALT (4-34) U/L 11/03/24 11/03/24 11/04/24 Range/Units 20:40 23:50 03:57 RBC 2.69 L (3.80-5.40) m/uL Hgb 9.0 L (11.4-16.0) gm/dL Hct 24.3 L (34.0-46.0) % MCH 33.5 H (27.0-32.0) pg MCHC (31.0-37.0) g/dL RDW 17.2 H (11.5-15.5) % Plt Count 85 L (150-450) k/uL MPV 8.8 L (9.5-12.2) FL Lymphocytes # (Manual) 0.21 L (0.90-5.00) X 10*3/uL Eosinophils # (Manual) 0 L (0.04-0.35) X 10*3/uL Metamyelocytes # (Man) (0) k/uL Myelocytes # (Manual) (0) k/uL NRBC/100 WBC Diff 0.10 H (0.00-0.01) X 10*3/uL APTT (22.0-30.0) sec Sodium 125 L (137-145) mmol/L Chloride 95 L (98-107) mmol/L Carbon Dioxide 20 L (22-30) mmol/L BUN (7-17) mg/dL Creatinine (0.6-1.5) mg/dL BUN/Creatinine Ratio (12.00-20.00) Ratio Glucose (74-99) mg/dL Plasma Lactic Acid Wily 3.9 H* (0.7-2.0) mmol/L Calcium (8.7-10.3) mg/dL Magnesium (1.6-2.3) mg/dL Total Bilirubin (0.2-1.3) mg/dL ALT (4-34) U/L 11/04/24 11/04/24 11/04/24 Range/Units 03:57 03:57 07:55 RBC 2.87 L (3.80-5.40) m/uL Hgb 9.7 L (11.4-16.0) gm/dL Hct 26.8 L (34.0-46.0) % MCH (27.0-32.0) pg MCHC (31.0-37.0) g/dL RDW 16.9 H (11.5-15.5) % Plt Count 90 L (150-450) k/uL MPV (9.5-12.2) FL Lymphocytes # (Manual) 0.79 L (0.90-5.00) X 10*3/uL Eosinophils # (Manual) (0.04-0.35) X 10*3/uL Metamyelocytes # (Man) 0.07 H (0) k/uL Myelocytes # (Manual) 0.22 H (0) k/uL NRBC/100 WBC Diff (0.00-0.01) X 10*3/uL APTT (22.0-30.0) sec Sodium 130 L (137-145) mmol/L Chloride (98-107) mmol/L Carbon Dioxide 20.5 L (22-30) mmol/L BUN (7-17) mg/dL Creatinine 0.5 L (0.6-1.5) mg/dL BUN/Creatinine Ratio 50.80 H (12.00-20.00) Ratio Glucose 215 H (74-99) mg/dL Plasma Lactic Acid Wily 2.9 H* (0.7-2.0) mmol/L Calcium 8.3 L (8.7-10.3) mg/dL Magnesium (1.6-2.3) mg/dL Total Bilirubin (0.2-1.3) mg/dL ALT (4-34) U/L 11/04/24 11/04/24 11/04/24 Range/Units 07:55 09:01 12:11 RBC (3.80-5.40) m/uL Hgb (11.4-16.0) gm/dL Hct (34.0-46.0) % MCH (27.0-32.0) pg MCHC (31.0-37.0) g/dL RDW (11.5-15.5) % Plt Count (150-450) k/uL MPV (9.5-12.2) FL Lymphocytes # (Manual) (0.90-5.00) X 10*3/uL Eosinophils # (Manual) (0.04-0.35) X 10*3/uL Metamyelocytes # (Man) (0) k/uL Myelocytes # (Manual) (0) k/uL NRBC/100 WBC Diff (0.00-0.01) X 10*3/uL APTT (22.0-30.0) sec Sodium 128 L (137-145) mmol/L Chloride 97 L (98-107) mmol/L Carbon Dioxide (22-30) mmol/L BUN 28 H (7-17) mg/dL Creatinine (0.6-1.5) mg/dL BUN/Creatinine Ratio (12.00-20.00) Ratio Glucose 212 H (74-99) mg/dL Plasma Lactic Acid Wily 2.9 H* 2.2 H* (0.7-2.0) mmol/L Calcium (8.7-10.3) mg/dL Magnesium (1.6-2.3) mg/dL Total Bilirubin (0.2-1.3) mg/dL ALT (4-34) U/L Chest x-ray: report reviewed Assessment and Plan (1) Dehydration Current Visit: Yes Status: Acute Priority: High Code(s): E86.0 - DEHYDRATION SNOMED Code(s): 69989934 (2) Hyponatremia Current Visit: Yes Status: Acute Priority: High Code(s): E87.1 - HYPO- OSMOLALITY AND HYPONATREMIA SNOMED Code(s): 21732516 (3) Metastatic primary lung cancer Current Visit: Yes Status: Acute Priority: High Code(s): C34.90 - MALIGNANT NEOPLASM OF UNSP PART OF UNSP BRONCHUS OR LUNG SNOMED Code(s): 84363293 Plan: Weakness, hyponatremia: Presented with progressing weakness over the last 1 week, decreased appetite and nausea. Patient states nausea has since subsided but decreased oral intake has persisted due to taste changes. Currently on decadron taper, 4mg BID, was supposed to begin 4mg once daily today -Sodium was noted at 121 on admit. Has since improved, 128 today with hydration. Of note she has previously been seen for the same and was on 1.5 L fluid restriction. Appears to be a component of SIADH. Nephrology following, [facility] ordered -Symptoms likely multifactorail due to hyponatremia and steroids. Will continue steroids at 4mg BID, will plan to slowly taper dose -Increase oral intake as tolerated -PT/OT consulted Metastatic NSCLC: -Oncology history as dictated in the HPI -Completed WBRT, recently started Darrionzajeanne on 10/29/24 -Continue Krazati, will continue monitor course of hospitalization -Clinic f/u upon discharge
[2024-11-05 09:00] LABS: BUN/Creat Ratio 39.29 Ratio (12.00-20.00); Blood Urea Nitrogen 27.5 mg/dL (9.0-27.0); Calcium 8.6 mg/dL (8.7-10.3); Carbon Dioxide 20.6 mmol/L (21.6-31.8); Chloride 98 mmol/L (96-109); Glucose 278 mg/dL (70-110); Potassium 4.3 mmol/L (3.5-5.5); Sodium 131 mmol/L (135-145)
[2024-11-05] MEDS: ERGOCALCIFEROL 1,250 MCG (50,000 IU) CAPSULE PO SCH (09:08)
--- NOTE | 2024-11-05 13:20 | P.PN ---
Subjective Patient is seen for follow-up for hyponatremia. She responded very well to Samsca and sodium is 131 today. Currently off of IV fluids. No significant complaints except for numbness in the left leg. Objective - Vital Signs Vital signs: Vital Signs Temp 97.5 F L 11/05/24 12:11 Pulse 87 11/05/24 12:11 Resp 18 11/05/24 12:11 BP 118/65 11/05/24 12:11 Pulse Ox 97 11/05/24 12:11 FiO2 Intake & Output 11/04/24 11/05/24 11/05/24 18:59 06:59 18:59 Intake Total 1524 222 Balance 1524 222 Weight 69.853 kg Intake: Oral 1524 222 Other: Voiding Method Toilet Toilet # Voids 2 1 - Exam Patient is awake, comfortable, no acute distress. Examination of the heart S1 and S2 Examination of the lungs bilateral breath sounds are heard Abdomen is soft nontender Examination lower extremities shows no significant edema. [employer] [address] exam shows patient is moving all 4 extremities although her legs are weaker - Labs CBC & Chem 7: 11/04/24 07:55 11/05/24 05:04 Labs: Abnormal Lab Results - Last 24 Hours (Table) 11/04/24 11/04/24 11/05/24 Range/Units 15:02 15:02 05:04 Sodium 124 L 131 L (137-145) mmol/L Carbon Dioxide 20.6 L (21.6-31.8) mmol/L Anion Gap 12.40 H (4.00-12.00) mmol/L BUN 27.5 H (9.0-27.0) mg/dL BUN/Creatinine Ratio 39.29 H (12.00-20.00) Ratio Glucose 278 H (70-110) mg/dL Plasma Lactic Acid Wily 3.2 H* (0.7-2.0) mmol/L Calcium 8.6 L (8.7-10.3) mg/dL Assessment and Plan Assessment: 1. Hyponatremia initially hypovolemic and improved with saline. Patient definitely has an underlying component of SIADH and sodium has improved significantly with Samsca. 2. Metastatic lung cancer with mets to the brain 3. Hypothyroidism maintained on supplementation Plan: Continue off of IV fluids Repeat sodium this evening Maintain fluid restriction about 1.5 to 2 L/day Continue with increase protein intake
[2024-11-05] MEDS: SENNOSIDES 8.6 MG TAB PO SCH (14:55)
[2024-11-05 18:33] LABS: Appearance,Urine Clear (Clear); Bilirubin,Urine Negative (Negative); Blood,Urine Negative (Negative); Color,Urine Colorless; Glucose,Urine (UA) 3+ (Negative); Ketones,Urine Negative (Negative); Leukocyte Esterase,Urine Negative (Negative); Nitrite,Urine Negative (Negative); Protein,Urine Negative (Negative); Specific Gravity,Urine 1.007 (1.001-1.035); Urobilinogen,Urine <2.0 mg/dL (<2.0)
--- NOTE | 2024-11-05 19:12 | P.PN ---
Subjective Progress Note Date: 11/05/24 Patient reporting no significant changes in how she is feeling. Still experiencing BLE weakness, stating when she walks, "my legs don't feel like they are a part of me". Denies headache, visual disturbances. Continues on decadron 4mg BID. Sodium improved to 131. Objective - Vital Signs Vital signs: Vital Signs Temp 97.8 F 11/05/24 07:10 Pulse 79 11/05/24 07:10 Resp 18 11/05/24 07:10 BP 116/64 11/05/24 07:10 Pulse Ox 97 11/05/24 07:10 FiO2 Intake & Output 11/04/24 11/05/24 11/05/24 18:59 06:59 18:59 Intake Total 1524 222 Balance 1524 222 Weight 69.853 kg Intake: Oral 1524 222 Other: Voiding Method Toilet Toilet # Voids 2 1 - Constitutional General appearance: Present: average body habitus, no acute distress - EENT Eyes: Present: anicteric sclerae, EOMI ENT: Present: hearing grossly normal - Respiratory Details: breathing is even and unlabored - Cardiovascular Details: skin warm and dry - Integumentary Integumentary: Absent: cyanotic, jaundiced - Neurologic Neurologic Comment(s): no focal deficits - Psychiatric Psychiatric: Present: A&O x's 3 - Labs CBC & Chem 7: 11/04/24 07:55 11/05/24 15:57 Labs: Abnormal Lab Results - Last 24 Hours (Table) 11/04/24 11/04/24 11/04/24 Range/Units 12:11 15:02 15:02 Sodium 124 L (137-145) mmol/L Carbon Dioxide (21.6-31.8) mmol/L Anion Gap (4.00-12.00) mmol/L BUN (9.0-27.0) mg/dL BUN/Creatinine Ratio (12.00-20.00) Ratio Glucose (70-110) mg/dL Plasma Lactic Acid Wily 2.2 H* 3.2 H* (0.7-2.0) mmol/L Calcium (8.7-10.3) mg/dL 11/05/24 Range/Units 05:04 Sodium 131 L (137-145) mmol/L Carbon Dioxide 20.6 L (21.6-31.8) mmol/L Anion Gap 12.40 H (4.00-12.00) mmol/L BUN 27.5 H (9.0-27.0) mg/dL BUN/Creatinine Ratio 39.29 H (12.00-20.00) Ratio Glucose 278 H (70-110) mg/dL Plasma Lactic Acid Wily (0.7-2.0) mmol/L Calcium 8.6 L (8.7-10.3) mg/dL Assessment and Plan (1) Dehydration Current Visit: Yes Status: Acute Priority: High Code(s): E86.0 - DEHYDRATION SNOMED Code(s): 42969486 (2) Hyponatremia Current Visit: Yes Status: Acute Priority: High Code(s): E87.1 - HYPO- OSMOLALITY AND HYPONATREMIA SNOMED Code(s): 01204408 (3) Metastatic primary lung cancer Current Visit: Yes Status: Acute Priority: High Code(s): C34.90 - MALIGNANT NEOPLASM OF UNSP PART OF UNSP BRONCHUS OR LUNG SNOMED Code(s): 31408100 Plan: Weakness, hyponatremia: Presented with progressing weakness over the last 1 week, decreased appetite and nausea. Patient states nausea has since subsided but decreased oral intake has persisted due to taste changes. Currently on decadron taper, 4mg BID -Sodium was noted at 121 on admit. Has since improved, 131 today. Of note she has previously been seen for the same and was on 1.5 L fluid restriction. Appea rs to be a component of SIADH. Nephrology following, [facility] ordered -Symptoms likely multifactorail due to hyponatremia and steroids. Will continue steroids at 4mg BID, with plan to slowly taper dose -Despite improvement in sodium, pt reports no improvement in symptoms. 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 Case discussed with rad onc. Will obtain MRI brain to further evaluate. -Increase oral intake as tolerated -PT/OT consulted Metastatic NSCLC: -Oncology history as dictated in the HPI -Completed WBRT, recently started Krazati on 10/29/24 -Continue Krazati, will continue to monitor course of hospitalization -Clinic f/u upon discharge
--- NOTE | 2024-11-05 19:13 | P.PN ---
Subjective This is a pleasant 64 years old female with past medical history of metastatic lung cancer Presents because of generalized weakness x 6 weeks, she states her weakness started after she was started on steroids and got treatment for shingles. She feels nausea but no vomiting or diarrhea, no urinary complaint No chest pain dyspnea or coughing No headache dizziness or unilateral weakness Patient able to walk by self Patient feels little of stomach upset from the steroids Patient states that she fell last Sunday about 2 days ago Patient currently is afebrile Vital stable Labs including CBC, LFT mildly elevated with bilirubin 1.7, BMP is unremarkable except for low sodium of 121 INR and troponin are negative Influenza A and type B, RSV, SARS (coronavirus) are undetected lactic acid of 4.0 Chest x-ray showing no acute process EKG showing sinus rhythm at [address]-T changes 11/04/24 Patient who presents initially with weakness and found to have hyponatremia, her sodium improved initially with normal saline fluid, however started to decrease again. Patient states little improvement in her weakness. She stayed in bed most of the time. Urine sodium and osmolality pending Normal saline was stopped Patient started on given 1 dose of Samsca x 1 by nephrology team 11/05 pt feels weakness, improving secondary to hyponatremia Na went up to 131 after pt recived Samsca x1 dose today Na rechecked at 126 pt is srarted on sodium chloride tabs once dailiy and democlycline recheck sodium in the am labs Objective - Vital Signs Vital signs: Vital Signs Temp 97.5 F L 11/05/24 12:11 Pulse 87 11/05/24 12:11 Resp 18 11/05/24 12:11 BP 118/65 11/05/24 12:11 Pulse Ox 97 11/05/24 12:11 FiO2 Intake & Output 11/04/24 11/05/24 11/05/24 18:59 06:59 18:59 Intake Total 1524 222 Balance 1524 222 Weight 69.853 kg Intake: Oral 1524 222 Other: Voiding Method Toilet Toilet # Voids 2 1 - Exam GENERAL: The patient is alert and oriented x3, not in any acute distress. Well developed, well nourished. HEENT: Pupils are round and equally reacting to light. EOMI. No scleral icterus. No conjunctival pallor. Normocephalic, atraumatic. No pharyngeal erythema. No thyromegaly. CARDIOVASCULAR: S1 and S2 present. No murmurs, rubs, or gallops. PULMONARY: Chest is clear to auscultation, no wheezing , no crackles. ABDOMEN: Soft, nontender, nondistended, normoactive bowel sounds. No palpable organomegaly. MUSCULOSKELETAL: No joint swelling or deformity. EXTREMITIES: No cyanosis, clubbing, or pedal edema. NEUROLOGICAL: Gross neurological examination did not reveal any focal deficits. SKIN: No rashes. no petechiae. - Labs CBC & Chem 7: 11/04/24 07:55 11/05/24 15:57 Labs: Abnormal Lab Results - Last 24 Hours (Table) 11/04/24 11/04/24 11/05/24 Range/Units 15:02 15:02 05:04 Sodium 124 L 131 L (137-145) mmol/L Carbon Dioxide 20.6 L (21.6-31.8) mmol/L Anion Gap 12.40 H (4.00-12.00) mmol/L BUN 27.5 H (9.0-27.0) mg/dL BUN/Creatinine Ratio 39.29 H (12.00-20.00) Ratio Glucose 278 H (70-110) mg/dL Plasma Lactic Acid Wily 3.2 H* (0.7-2.0) mmol/L Calcium 8.6 L (8.7-10.3) mg/dL Assessment and Plan Assessment: Generalized weakness with fall about 2 days prior to hospitalization without syncope hyponatremia, hypovolemic, improved. 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 Continue same treatment. Continue with symptomatic treatment. Resume home medication. Monitor labs and vitals. DVT and GI prophylaxis. Further recommendations as per clinical course of the patient DVT prophylaxis: Subcutaneous heparin GI Prophylaxis: Pepcid PT/OT: Pending Prognosis is guarded
[2024-11-05] MEDS: DEMECLOCYCLINE 150 MG TAB PO SCH (20:59)
[2024-11-05] MEDS: SODIUM CHLORIDE TAB 1 GM TAB PO SCH (20:59)
--- NOTE | 2024-11-06 11:27 | P.PN ---
Subjective This is a pleasant 64 years old female with past medical history of metastatic lung cancer Presents because of generalized weakness x 6 weeks, she states her weakness started after she was started on steroids and got treatment for shingles. She feels nausea but no vomiting or diarrhea, no urinary complaint No chest pain dyspnea or coughing No headache dizziness or unilateral weakness Patient able to walk by self Patient feels little of stomach upset from the steroids Patient states that she fell last Sunday about 2 days ago Patient currently is afebrile Vital stable Labs including CBC, LFT mildly elevated with bilirubin 1.7, BMP is unremarkable except for low sodium of 121 INR and troponin are negative Influenza A and type B, RSV, SARS (coronavirus) are undetected lactic acid of 4.0 Chest x-ray showing no acute process EKG showing sinus rhythm at [address]-T changes 11/04/24 Patient who presents initially with weakness and found to have hyponatremia, her sodium improved initially with normal saline fluid, however started to decrease again. Patient states little improvement in her weakness. She stayed in bed most of the time. Urine sodium and osmolality pending Normal saline was stopped Patient started on given 1 dose of Samsca x 1 by nephrology team 11/05 pt feels weakness, improving secondary to hyponatremia Na went up to 131 after pt recived Samsca x1 dose today Na rechecked at 126 pt is srarted on sodium chloride tabs once dailiy and democlycline recheck sodium in the am labs 11/06/2024 Patient still complains from generalized weakness Yesterday she worked with physical/occupational therapy where she could walk in the hallway but with fatigue lower extremity Today patient still complains from weakness and mainly in her lower extremities, on examination she could not bend her both knees well. Oncology team requested MRI of the brain and of the spine. Because of there is suspicion of worsening weakness of the lower extremity we will going to consult neurology service as well Patient denies headache or dizziness. No chest pain or dyspnea. Sodium this morning was 127, recheck sodium now Review of systems: Cardiovascular. No chest pain or dyspnea Pulmonary: No dyspnea, no hemoptysis GI: No vomiting diarrhea or abdominal pain Genitourinary: No dysuria or urgency Active Medications Generic Name Dose Route Start Last Admin Trade Name Freq PRN Reason Stop Dose Admin Acetaminophen 650 mg 11/03/24 14:21 Acetaminophen Tab 325 Mg Tab PO Q6HR PRN Mild Pain or Fever > 100.5 Amlodipine Besylate 5 mg 11/04/24 09:00 11/06/24 08:13 Amlodipine 5 Mg Tab PO 5 mg DAILY GILSON Administration Calcium Carbonate/Glycine 1,000 mg 11/04/24 15:05 11/04/24 15:16 Calcium Carbonate 500 Mg Chewable PO 1,000 mg TID PRN Administration Heartburn Demeclocycline HCl 300 mg 11/05/24 21:00 11/06/24 08:13 Demeclocycline 150 Mg Tab PO 300 mg BID GILSON Administration Dexamethasone 4 mg 11/03/24 23:00 11/06/24 08:13 Dexamethasone 4 Mg Tab PO 11/10/24 22:54 4 mg BID GILSON Administration Ergocalciferol 1,250 mcg 11/05/24 09:00 11/05/24 09:08 Ergocalciferol 1,250 Mcg (50,000 Iu) Capsule PO 1,250 mcg WE GILSON Administration Levothyroxine Sodium 75 mcg 11/04/24 06:00 11/06/24 05:21 Levothyroxine 75 Mcg Tab PO 75 mcg DAILY@0600 GILSON Administration Naloxone HCl 0.2 mg 11/03/24 14:21 Naloxone 0.4 Mg/Ml 1 Ml Vial IV Q2M PRN Opioid Reversal Adagrasib [Krazati] 600 mg 11/04/24 09:00 11/06/24 08:14 200 Mg Tablet PO 600 mg BID GILSON Administration Pantoprazole Sodium 40 mg 11/04/24 07:30 11/06/24 08:13 Pantoprazole 40 Mg Tablet PO 40 mg DAILY@0730 GILSON Administration Senna 8.6 mg 11/05/24 14:00 11/06/24 08:13 Sennosides 8.6 Mg Tab PO 8.6 mg BID GILSON Administration Sodium Chloride 1 gm 11/05/24 19:30 11/06/24 08:13 Sodium Chloride Tab 1 Gm Tab PO 1 gm DAILY GILSON Administration Objective - Vital Signs Vital signs: Vital Signs Temp 98.0 F 11/06/24 07:30 Pulse 74 11/06/24 07:30 Resp 16 11/06/24 07:30 BP 114/52 11/06/24 07:30 Pulse Ox 97 11/06/24 07:30 FiO2 Intake & Output 11/05/24 11/06/24 11/06/24 18:59 06:59 18:59 Intake Total 761 240 240 Balance 761 240 240 Intake: Oral 761 240 240 Other: Voiding Method Toilet Toilet # Voids 1 1 - Exam -GENERAL: The patient is alert and oriented x3, not in any acute distress. Well developed, well nourished. Generally weak HEENT: Pupils are round and equally reacting to light. EOMI. No scleral icterus. No conjunctival pallor. Normocephalic, atraumatic. No pharyngeal erythema. No thyromegaly. CARDIOVASCULAR: S1 and S2 present. No murmurs, rubs, or gallops. PULMONARY: Chest is clear to auscultation, no wheezing , no crackles. ABDOMEN: Soft, nontender, nondistended, normoactive bowel sounds. No palpable organomegaly. MUSCULOSKELETAL: No joint swelling or deformity. EXTREMITIES: No cyanosis, clubbing, or pedal edema. -NEUROLOGICAL: Cranial nerves are grossly intact. Lower extremities was very symmetrically weak and mainly in bed at the knees and to lesser extent at the ankles and the toes. Meningeal signs absent SKIN: No rashes. no petechiae. - Labs CBC & Chem 7: 11/04/24 07:55 11/06/24 03:25 Labs: Abnormal Lab Results - Last 24 Hours (Table) 11/05/24 11/05/24 11/06/24 Range/Units 15:57 18:15 03:25 Sodium 126 L 127 L (137-145) mmol/L Urine Glucose (UA) 3+ H (Negative) Assessment and Plan Assessment: Generalized weakness with fall about 2 days prior to hospitalization without syncope hyponatremia, hypovolemic, improved. 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 Plan: MRI of the brain and spine was ordered by oncology team Recommend to consult neurology service continue sodium chloride tabs Monitor sodium Nephrology consult Hematology/oncology team consult Labs and medication were reviewed.. Continue same treatment. Continue with symptomatic treatment. Resume home medication. Monitor labs and vitals. DVT and GI prophylaxis. Further recommendations as per clinical course of the patient DVT prophylaxis: Subcutaneous heparin GI Prophylaxis: Pepcid PT/OT: Pending Prognosis is guarded
--- NOTE | 2024-11-06 13:33 | MR ---
EXAMINATION TYPE: MR brain wo/w con DATE OF EXAM: 11/06/2024 COMPARISON: Prior CT January 11, 2012. Prior outside brain MRI September 23, 2024 HISTORY: Metastatic lung cancer to brain TECHNIQUE: Multiplanar, multisequence images of the brain and brainstem is performed without and with IV contras t, utilizing 7 mL intravenous Gadobutrol . FINDINGS: Diffusion weighted images demonstrate no evidence of a recent infarct or other diffusion ab normality. The ventricular system and cisternal spaces are normal in size and appearance. The brain volume is age appropriate. There is occasional T2 hyperintense focus scattered throughout the white m atter bilaterally. Lesions are nonspecific in appearance and distribution. Midline structures demonstrate normal morphology. The craniocervical junction appears within normal limits. Postcontrast images redemonstrate multiple ring-enhancing lesions bilaterally. For reference, There i s a 7 x 7 mm high posterior right frontal lesion axial image 140 which is decreased in size from prio r outside study measuring 12 x 12 mm. Persistent but improving surrounding T2 hyperintensity or vasog enic edema is noted. There is persistent but smaller inferior left occipital lesion measuring 9 x 8 m m size image 74 decreased from 14 x 13 mm on prior study axial image 40. Other lesions stable or smal ler in size with improving vasogenic edema. The dural venous sinuses appear patent. The visualized sinuses are clear and the globes are intact. IMPRESSION: Partial positive treatment response to known metastatic disease is noted as detailed [facility], , 11/06/2024 1:31 PM
--- NOTE | 2024-11-06 15:09 | P.PN ---
Subjective Progress Note Date: 11/06/24 Patient reporting feeling some improvement in BLE tingling. Still experiencing BLE weakness. Denies headache, n/v and visual disturbances. Denies back pain, and loss of bowel and bladder control. Continues on decadron 4mg BID. Sodium 127 Objective - Vital Signs Vital signs: Vital Signs Temp 98.0 F 11/06/24 07:30 Pulse 74 11/06/24 07:30 Resp 16 11/06/24 07:30 BP 114/52 11/06/24 07:30 Pulse Ox 97 11/06/24 07:30 FiO2 Intake & Output 11/05/24 11/06/24 11/06/24 18:59 06:59 18:59 Intake Total 761 240 240 Balance 761 240 240 Intake: Oral 761 240 240 Other: Voiding Method Toilet Toilet # Voids 1 1 - Constitutional General appearance: Present: average body habitus, no acute distress - EENT Eyes: Present: anicteric sclerae, EOMI ENT: Present: hearing grossly normal - Respiratory Details: breathing is even and unlabored - Cardiovascular Details: well perfused - Gastrointestinal General gastrointestinal: Present: soft. Absent: tenderness - Integumentary Integumentary: Absent: cyanotic, jaundiced - Musculoskeletal Musculoskeletal Comment(s): BLE weakness, L>R, sensation intact - Psychiatric Psychiatric: Present: A&O x's 3 - Labs CBC & Chem 7: 11/04/24 07:55 11/06/24 12:11 Labs: Abnormal Lab Results - Last 24 Hours (Table) 11/05/24 11/05/24 11/06/24 Range/Units 15:57 18:15 03:25 Sodium 126 L 127 L (137-145) mmol/L Urine Glucose (UA) 3+ H (Negative) Assessment and Plan (1) Dehydration Current Visit: Yes Status: Acute Priority: High Code(s): E86.0 - DEHYDRATION SNOMED Code(s): 59681980 (2) Hyponatremia Current Visit: Yes Status: Acute Priority: High Code(s): E87.1 - HYPO- OSMOLALITY AND HYPONATREMIA SNOMED Code(s): 15062899 (3) Metastatic primary lung cancer Current Visit: Yes Status: Acute Priority: High Code(s): C34.90 - MALIGNANT NEOPLASM OF UNSP PART OF UNSP BRONCHUS OR LUNG SNOMED Code(s): 22714623 Plan: Weakness, hyponatremia: Presented with progressing weakness over the last 1 week, decreased appetite and nausea. Patient states nausea has since subsided but decreased oral intake has persisted due to taste changes. Currently on decadron taper, 4mg BID -Sodium was noted at 121 on admit. Of note she has previously been seen for the same and was on 1.5 L fluid restriction. Appears to be a component of SIADH. Nephrology following. Sodium today 127, sodium supplementation ordered -Symptoms likely multifactorail due to hyponatremia and steroids. Will continue steroids at 4mg BID, with plan to slowly taper dose -Despite improvement in sodium, pt reports only mild improvement in symptoms. 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 Case discussed with rad onc. Will obtain MRI brain, and MRI T/L spine to further evaluate. -Increase oral intake as tolerated -PT/OT consulted Metastatic NSCLC: -Oncology history as dictated in the HPI -Completed WBRT, recently started Sanjeev on 10/29/24 -Continue Krazati, will continue to monitor course of hospitalization -Clinic f/u upon discharge Attests: I have seen and examined pt, performed H&P, developed impression and plan of care. Discussed with dictator. Agree with documentation, dictated as a scribe.
--- NOTE | 2024-11-06 21:37 | P.PN ---
Subjective Patient is seen for follow-up for hyponatremia. She responded very well to Samsca and sodium had increased to 131 however it dropped to 126 yesterday. Patient was started on demeclocycline and received sodium chloride tablet. Sodium has increased to 129 today. No significant complaints. Currently in the shower. Objective - Vital Signs Vital signs: Vital Signs Temp 97.7 F 11/06/24 19:22 Pulse 84 11/06/24 19:22 Resp 16 11/06/24 19:22 BP 122/68 11/06/24 19:22 Pulse Ox 97 11/06/24 19:22 FiO2 Intake & Output 11/06/24 11/06/24 11/07/24 06:59 18:59 06:59 Intake Total 240 1500 Output Total 1 Balance 240 1499 Intake: Oral 240 1500 Output: Stool 1 Other: Voiding Method Toilet Toilet # Voids 1 4 - Exam Patient is awake, comfortable, no acute distress. Examination lower extremities shows no significant edema. [employer] exam shows patient is moving all 4 extremities although her legs are weaker - Labs CBC & Chem 7: 11/04/24 07:55 11/06/24 12:11 Labs: Abnormal Lab Results - Last 24 Hours (Table) 11/06/24 11/06/24 Range/Units 03:25 12:11 Sodium 127 L 129 L (137-145) mmol/L Assessment and Plan Assessment: 1. Hyponatremia initially hypovolemic and improved with saline. Patient definitely has an underlying component of SIADH and sodium improved significantly with Samsca but dropped again. Currently maintained on demeclocycline and sodium chloride tabs. She seems to be responding well.. 2. Metastatic lung cancer with mets to the brain 3. Hypothyroidism maintained on supplementation Plan: Repeat sodium in a.m. Maintain fluid restriction about 1.5 to 2 L/day Continue with increase protein intake
[2024-11-07 08:55] LABS: Blood Urea Nitrogen 27.3 mg/dL (9.0-27.0); Calcium 8.6 mg/dL (8.7-10.3); Carbon Dioxide 20.3 mmol/L (21.6-31.8); Chloride 96 mmol/L (96-109); Glucose 245 mg/dL (70-110); Potassium 4.2 mmol/L (3.5-5.5); Sodium 129 mmol/L (135-145)
[2024-11-07] MEDS: ACETAMINOPHEN TAB 325 MG TAB PO PRN (09:52)
[2024-11-07 09:54] LABS: Basophils # (M) 0 X 10*3/uL (0.00-0.10); Eosinophils # (M) 0 X 10*3/uL (0.04-0.35); HCT 24.1 % (37.2-46.3); HGB 8.5 g/dL (12.0-15.0); Immature Platelet Fraction 1.5 % (1.1-6.1); Lymphocytes # (M) 0.07 X 10*3/uL (0.90-5.00); MCH 32.8 pg (27.0-32.0); MCHC 35.3 g/dL (32.0-37.0); MCV 93.1 FL (80.0-97.0); Mean Platelet Volume 8.9 FL (9.5-12.2); Metamyelocytes % 4 % (0-0); Microcytosis (M) 2+ (None Seen); Monocytes # (M) 0.28 X 10*3/uL (0.20-1.00); Myelocytes % 3 % (0-0); NRBC Per 100 WBC 0.21 X 10*3/uL (0.00-0.01); Neutrophils # (M) 6.18 X 10*3/uL (1.80-7.70); Neutrophils % (M) 88 %; Nucleated Red Blood Cells 2 /100 WBCS; Platelet Count 75 X 10*3/uL (140-440); RBC 2.59 X 10*6/uL (4.10-5.20); RDW 17.5 % (11.5-14.5); WBC 7.02 X 10*3/uL (4.50-10.00)
--- NOTE | 2024-11-07 15:27 | P.PN ---
Subjective Progress Note Date: 11/07/24 This is a pleasant 64 years old female with past medical history of metastatic lung cancer Presents because of generalized weakness x 6 weeks, she states her weakness started after she was started on steroids and got treatment for shingles. She feels nausea but no vomiting or diarrhea, no urinary complaint No chest pain dyspnea or coughing No headache dizziness or unilateral weakness Patient able to walk by self Patient feels little of stomach upset from the steroids Patient states that she fell last Sunday about 2 days ago Patient currently is afebrile Vital stable Labs including CBC, LFT mildly elevated with bilirubin 1.7, BMP is unremarkable except for low sodium of 121 INR and troponin are negative Influenza A and type B, RSV, SARS (coronavirus) are undetected lactic acid of 4.0 Chest x-ray showing no acute process EKG showing sinus rhythm at [address]-T changes 11/04/24 Patient who presents initially with weakness and found to have hyponatremia, her sodium improved initially with normal saline fluid, however started to decrease again. Patient states little improvement in her weakness. She stayed in bed most of the time. Urine sodium and osmolality pending Normal saline was stopped Patient started on given 1 dose of Samsca x 1 by nephrology team 11/05 pt feels weakness, improving secondary to hyponatremia Na went up to 131 after pt recived Samsca x1 dose today Na rechecked at 126 pt is srarted on sodium chloride tabs once dailiy and democlycline recheck sodium in the am labs 11/06/2024 Patient still complains from generalized weakness Yesterday she worked with physical/occupational therapy where she could walk in the hallway but with fatigue lower extremity Today patient still complains from weakness and mainly in her lower extremities, on examination she could not bend her both knees well. Oncology team requested MRI of the brain and of the spine. Because of there is suspicion of worsening weakness of the lower extremity we will going to consult neurology service as well Patient denies headache or dizziness. No chest pain or dyspnea. Sodium this morning was 127, recheck sodium now 11/07. Patient seen and examined. MRI brain done showed partially positive treatment response to known metastatic disease. Sodium level improved. REVIEW OF SYSTEMS: CONSTITUTIONAL: No fever, no malaise,. CARDIOVASCULAR: No chest pain, no palpitations, no syncope. PULMONARY: No shortness of breath, no cough, GASTROINTESTINAL: No diarrhea, no nausea, no vomiting, no abdominal pain. NEUROLOGICAL: No headaches, no weakness, PHYSICAL EXAMINATION: GENERAL: The patient is alert and oriented x3, chronically ill looking HEENT: Pupils are round and equally reacting to light. EOMI. No scleral icterus. No conjunctival pallor. Normocephalic, atraumatic. No pharyngeal erythema. No thyromegaly. CARDIOVASCULAR: S1 and S2 present. No murmurs, rubs, or gallops. PULMONARY: Chest is clear to auscultation, no wheezing or crackles. ABDOMEN: Soft, nontender, nondistended, normoactive bowel sounds. No palpable organomegaly. MUSCULOSKELETAL: No joint swelling or deformity. EXTREMITIES: No cyanosis, clubbing, or pedal edema. NEUROLOGICAL: Gross neurological examination did not reveal any focal deficits. SKIN: No rashes. 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 Continue same treatment. Continue with symptomatic treatment. Resume home medication. Monitor labs and vitals. DVT and GI prophylaxis. Further recommendations as per clinical course of the patient Dictation was produced using [employer] dictation software. please excuse any grammatical, word or spelling errors. Objective - Vital Signs Vital signs: Vital Signs Temp 98.2 F 11/07/24 07:10 Pulse 84 11/07/24 07:10 Resp 16 11/07/24 08:00 BP 138/74 11/07/24 07:10 Pulse Ox 98 11/07/24 08:49 FiO2 Intake & Output 11/06/24 11/07/24 11/07/24 18:59 06:59 18:59 Intake Total 1500 240 300 Output Total 1 1 Balance 1499 240 299 Intake: Oral 1500 300 Tube Feeding 240 Output: Stool 1 1 Other: Voiding Method Toilet Toilet # Voids 4 3 - Labs CBC & Chem 7: 11/07/24 04:34 11/07/24 04:34 Labs: Abnormal Lab Results - Last 24 Hours (Table) 11/06/24 11/07/24 11/07/24 Range/Units 12:11 04:34 04:34 RBC 2.59 L (4.10-5.20) X 10*6/uL Hgb 8.5 L (12.0-15.0) g/dL Hct 24.1 L (37.2-46.3) % MCH 32.8 H (27.0-32.0) pg RDW 17.5 H (11.5-14.5) % Plt Count 75 L (140-440) X 10*3/uL MPV 8.9 L (9.5-12.2) FL Lymphocytes # (Manual) 0.07 L (0.90-5.00) X 10*3/uL Eosinophils # (Manual) 0 L (0.04-0.35) X 10*3/uL NRBC/100 WBC Diff 0.21 H (0.00-0.01) X 10*3/uL Microcytosis (manual) 2+ A (None Seen) Sodium 129 L 129 L (137-145) mmol/L Carbon Dioxide 20.3 L (21.6-31.8) mmol/L Anion Gap 12.70 H (4.00-12.00) mmol/L BUN 27.3 H (9.0-27.0) mg/dL Creatinine 0.5 L (0.6-1.5) mg/dL BUN/Creatinine Ratio 54.60 H (12.00-20.00) Ratio Glucose 245 H (70-110) mg/dL Calcium 8.6 L (8.7-10.3) mg/dL
--- NOTE | 2024-11-07 15:58 | P.CNNES ---
History of Present Illness Consult date: 11/07/24 Requesting physician: Elliot Perea Reason for Consult: Lower extremity weakness History of Present Illness: Patient is a 64-year-old right-handed female with diagnosis of metastatic lung cancer, came to the hospital by ambulance on 11/03/2024 at 11:56 AM for generalized weakness and hyponatremia. Patient was diagnosed with lung cancer in January 2024, for which she underwent 5 weeks of chemotherapy followed by 30 days of radiation therapy. In August 2024, she was diagnosed with cerebral metastasis for which she underwent gamma knife with 10 days of whole brain radiation. 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 However subsequently patient has developed episodes of hyponatremia, which brings her completely down, cannot walk. Patient states that on a scale of 1-10, where 10 is normal, patient's strength goes down to 4 from the steroids. And from hyponatremia it goes down to 1. About 3 to 4 weeks ago, she was admitted to [facility] for hyponatremia. After it was treated, improved, but now she again came back with hyponatremia to this hospital. Patient states that prior to , she used to walk about 1 to 3 miles per day. But now she has difficulty getting out of chair. When she is laying in the bed, she cannot move her legs, she has to use the pajamas to lift her legs to move it. Patient also has received 1 dose of immunotherapy on 09/01/2024. On Sunday, 5 days ago, she could not walk. Patient also admits to having dry mouth, metallic taste, and sometimes watery eyes but she does have dry eyes. Patient denies any significant weakness in the upper limbs, although she believes it is slightly shaky and slightly weak. She admits to having some weird tingling feeling off and on in the legs, left more than right. It is not constant. Patient denies any low back pain or midthoracic pain. As per EMS flowsheet, when they arrived, patient was complaining of severe weakness. Patient states that since she was diagnosed with cancer and started on steroid treatment, has been becoming more weak and has lost all appetite. Patient states that over the last few days, she has not even been able to walk to the bathroom. Patient denies any pain. Patient has been afebrile. Vital signs are stable. Blood tests shows normal WBC hemoglobin 8.5 platelets are decreased 75. Sodium 129, BUN 27, renal functions normal. UA negative. Patient's AST was normal 27, ALT 49. Influenza, RSV and coronavirus PCR negative. Current medication includes Decadron taper, lisinopril/HCTZ, Protonix, Synthroid, vitamin D, Norvasc 5 mg. Patient lives by herself. Patient has history of smoking about half to 3/4 pack/day for 30 years, quit in March 2024. Patient has not drank alcohol for a while. She was never a heavy drinker. Denies diabetes. Review of Systems All pertinent positive and negative review of systems mentioned in the HPI. Otherwise negative. Past Medical History Past Medical History: Cancer, Hypertension, Thyroid Disorder Additional Past Medical History / Comment(s): Lung CA with mets to brain as of August 2024 History of Any Multi-Drug Resistant Organisms: None Reported Past Surgical History: Hysterectomy Past Psychological History: No Psychological Hx Reported Smoking Status: Former smoker Past Alcohol Use History: Occasional Past Drug Use History: None Reported Medications and Allergies Home Medications Medication Instructions Recorded Confirmed Type Adagrasib [Krazati] 600 mg PO BID 11/03/24 11/03/24 History Ergocalciferol (Vitamin D2) 1,250 mcg PO WE 11/03/24 11/03/24 History [Drisdol (50,000 Iu)] Ipratropium/Albuter 20-100Mcg 1 puff INHALATION RT-Q6H PRN MDD 6 11/03/24 11/03/24 History [Combivent Respimat 20-100Mcg PUFFS Inhaler] L.acidoph,Paracasei, B.lactis 1 cap PO DAILY 11/03/24 11/03/24 History [Probiotic] Levothyroxine Sodium [Synthroid] 75 mcg PO DAILY 11/03/24 11/03/24 History Lisinopril-Hctz 20-25 mg 1 tab PO DAILY 11/03/24 11/03/24 History [Zestoretic 20-25] Ondansetron [Zofran] 4 - 8 mg PO Q4H PRN MDD 8 tabs 11/03/24 11/03/24 History Pantoprazole [Protonix] 40 mg PO DAILY 11/03/24 11/03/24 History amLODIPine [Norvasc] 5 mg PO DAILY 11/03/24 11/03/24 History dexAMETHasone [Decadron] See Taper PO DIRECTED 11/03/24 11/03/24 History Allergies Allergy/AdvReac Type Severity Reaction Status Date / Time ceftriaxone [From Rocephin] Allergy Rash/Hives, Verified 11/03/24 12:59 Tongue swelling Physical Examination - Vital Signs Vital Signs: Vital Signs Temp Pulse Resp BP Pulse Ox 11/07/24 11:50 97.8 F 89 16 116/64 96 11/07/24 08:49 98 11/07/24 08:00 16 11/07/24 07:10 98.2 F 84 16 138/74 97 11/07/24 02:00 98 F 86 16 120/70 97 11/06/24 19:22 97.7 F 84 16 122/68 97 Intake and Output 11/06/24 11/07/24 11/07/24 22:59 06:59 14:59 Intake Total 240 240 300 Output Total 1 Balance 240 240 299 Intake: Oral 240 300 Tube Feeding 240 Output: Stool 1 Other: Voiding Method Toilet Toilet # Voids 1 3 Patient is a late middle-aged female, very pleasant, in no acute distress. Patient is alert awake oriented to time place and person. Speech and language functions are normal. Patient can name and repeat very well. No aphasia or dysarthria. Attention, concentration and fund of knowledge is adequate. On cranial nerve examination, pupils are equal, round and reacting to light, visual santoyo are full on confrontation, with no neglect on double simultaneous stimulation. Extraocular muscles are intact with no nystagmus. Face is symmetric, tongue protrudes to the midline. Palatal elevation and sensation normal, hearing and shoulder shrug normal, facial sensation normal. On muscle strength testing, there is no pronator drift and the strength is normal in arms distally and proximally. In the lower limbs, the strength is weak but symmetric, with hip flexion is 2, knee extension 5, hip adduction 4+, hip abduction 4+5-, ankle dorsiflexion 5, toe extension 5 5-. Deep tendon reflexes are symmetric, trace at the biceps, trace brachioradialis, trace at the knees goes up to 1 with reinforcement, absent in the ankles and plantars are flat. Sensory to touch is equal with no neglect on double simultaneous stimulation. Cerebellar function showed no ataxia for [id number] testing, although patient was slightly tremulous. No dysdiadochokinesia. Cannot perform he el-to-rangel testing because of leg weakness. Tone and bulk of muscles normal. Gait deferred.. On general examination, there is no carotid bruit or murmur, S1-S2 audible. Chest is clear on consultation. Abdomen is soft nontender. No organomegaly, bowel sounds present. Peripheral pulses are present. Mild peripheral edema. Results - Laboratory Findings CBC and BMP: 11/07/24 04:34 11/08/24 06:19 Abnormal Lab Findings: Abnormal Labs 11/03/24 11/03/24 11/03/24 12:59 12:59 12:59 RBC 3.23 L Hgb 11.0 L Hct 29.3 L MCH MCHC 37.6 H RDW 16.8 H Plt Count 114 L MPV Lymphocytes # (Manual) Eosinophils # (Manual) Metamyelocytes # (Man) Myelocytes # (Manual) NRBC/100 WBC Diff Microcytosis (manual) APTT 18.0 L Sodium 121 L Chloride 89 L Carbon Dioxide 19 L Anion Gap BUN 31 H Creatinine BUN/Creatinine Ratio Glucose 192 H Plasma Lactic Acid Wily Calcium Magnesium 2.5 H Total Bilirubin 1.7 H ALT 49 H Urine Glucose (UA) 11/03/24 11/03/24 11/03/24 12:59 15:44 20:31 RBC Hgb Hct MCH MCHC RDW Plt Count MPV Lymphocytes # (Manual) Eosinophils # (Manual) Metamyelocytes # (Man) Myelocytes # (Manual) NRBC/100 WBC Diff Microcytosis (manual) APTT Sodium Chloride Carbon Dioxide Anion Gap BUN Creatinine BUN/Creatinine Ratio Glucose Plasma Lactic Acid Wily 4.0 H* 4.2 H* 4.2 H* Calcium Magnesium Total Bilirubin ALT Urine Glucose (UA) 11/03/24 11/03/24 11/04/24 20:40 23:50 03:57 RBC 2.69 L Hgb 9.0 L Hct 24.3 L MCH 33.5 H MCHC RDW 17.2 H Plt Count 85 L MPV 8.8 L Lymphocytes # (Manual) 0.21 L Eosinophils # (Manual) 0 L Metamyelocytes # (Man) Myelocytes # (Manual) NRBC/100 WBC Diff 0.10 H Microcytosis (manual) APTT Sodium 125 L Chloride 95 L Carbon Dioxide 20 L Anion Gap BUN Creatinine BUN/Creatinine Ratio Glucose Plasma Lactic Acid Wily 3.9 H* Calcium Magnesium Total Bilirubin ALT Urine Glucose (UA) 11/04/24 11/04/24 11/04/24 03:57 03:57 07:55 RBC 2.87 L Hgb 9.7 L Hct 26.8 L MCH MCHC RDW 16.9 H Plt Count 90 L MPV Lymphocytes # (Manual) 0.79 L Eosinophils # (Manual) Metamyelocytes # (Man) 0.07 H Myelocytes # (Manual) 0.22 H NRBC/100 WBC Diff Microcytosis (manual) APTT Sodium 130 L Chloride Carbon Dioxide 20.5 L Anion Gap BUN Creatinine 0.5 L BUN/Creatinine Ratio 50.80 H Glucose 215 H Plasma Lactic Acid Wily 2.9 H* Calcium 8.3 L Magnesium Total Bilirubin ALT Urine Glucose (UA) 11/04/24 11/04/24 11/04/24 07:55 09:01 12:11 RBC Hgb Hct MCH MCHC RDW Plt Count MPV Lymphocytes # (Manual) Eosinophils # (Manual) Metamyelocytes # (Man) Myelocytes # (Manual) NRBC/100 WBC Diff Microcytosis (manual) APTT Sodium 128 L Chloride 97 L Carbon Dioxide Anion Gap BUN 28 H Creatinine BUN/Creatinine Ratio Glucose 212 H Plasma Lactic Acid Wily 2.9 H* 2.2 H* Calcium Magnesium Total Bilirubin ALT Urine Glucose (UA) 11/04/24 11/04/24 11/05/24 15:02 15:02 05:04 RBC Hgb Hct MCH MCHC RDW Plt Count MPV Lymphocytes # (Manual) Eosinophils # (Manual) Metamyelocytes # (Man) Myelocytes # (Manual) NRBC/100 WBC Diff Microcytosis (manual) APTT Sodium 124 L 131 L Chloride Carbon Dioxide 20.6 L Anion Gap 12.40 H BUN 27.5 H Creatinine BUN/Creatinine Ratio 39.29 H Glucose 278 H Plasma Lactic Acid Wily 3.2 H* Calcium 8.6 L Magnesium Total Bilirubin ALT Urine Glucose (UA) 11/05/24 11/05/24 11/06/24 15:57 18:15 03:25 RBC Hgb Hct MCH MCHC RDW Plt Count MPV Lymphocytes # (Manual) Eosinophils # (Manual) Metamyelocytes # (Man) Myelocytes # (Manual) NRBC/100 WBC Diff Microcytosis (manual) APTT Sodium 126 L 127 L Chloride Carbon Dioxide Anion Gap BUN Creatinine BUN/Creatinine Ratio Glucose Plasma Lactic Acid Wily Calcium Magnesium Total Bilirubin ALT Urine Glucose (UA) 3+ H 11/06/24 11/07/24 11/07/24 12:11 04:34 04:34 RBC 2.59 L Hgb 8.5 L Hct 24.1 L MCH 32.8 H MCHC RDW 17.5 H Plt Count 75 L MPV 8.9 L Lymphocytes # (Manual) 0.07 L Eosinophils # (Manual) 0 L Metamyelocytes # (Man) Myelocytes # (Manual) NRBC/100 WBC Diff 0.21 H Microcytosis (manual) 2+ A APTT Sodium 129 L 129 L Chloride Carbon Dioxide 20.3 L Anion Gap 12.70 H BUN 27.3 H Creatinine 0.5 L BUN/Creatinine Ratio 54.60 H Glucose 245 H Plasma Lactic Acid Wily Calcium 8.6 L Magnesium Total Bilirubin ALT Urine Glucose (UA) Assessment and Plan Assessment: * New onset weakness of the proximal muscles of lower limbs bilaterally. Symptoms started after patient received steroids, but has got worse after she developed hyponatremia. No evidence of spinal metastasis. Rule out steroid myopathy, proximal neuropathy, rule out Lambert-Eaton myasthenic syndrome. * Metastatic lung cancer * Hyponatremia, SIADH, came with 121, now 129. * Cerebral metastasis * Hypertension * Ex tobacco use Plan: * MRI of the brain was performed yesterday, which revealed partial positive treatment response to known metastatic disease. On my review, there are multiple enhancing lesions, but not with significant mass effect in any. * MRI of the thoracic and lumbar spine has been completed, results pending. No significant spinal stenosis. Await official radiology report. There is a disc herniation at mid thoracic spine, which is touching the spinal cord but no compression. * We will check B12, folate, MMA, B6, creatinine kinase, aldolase, TSH. We will also check blood test for Lambert-Eaton myasthenic syndrome. * Recommend patient follow-up with neurologist for EMG nerve conduction with repetitive stimulation for of bilateral lower limbs. * Continue to taper down prednisone, if possible. * PT and OT. * Treatment of hyponatremia as per IM and other specialties on board. * Neurology will follow. Thank you for the consult
--- NOTE | 2024-11-07 18:41 | P.PN ---
Subjective Progress Note Date: 11/07/24 Patient reporting increased BLE tingling today. Strength does seem to be somewhat improved on exam. Brain MRI showing partial positive treatment response. MRI T/L spine pending. Continues on decadron 4mg BID. Sodium 129 Objective - Vital Signs Vital signs: Vital Signs Temp 97.8 F 11/07/24 11:50 Pulse 89 11/07/24 11:50 Resp 16 11/07/24 11:50 BP 116/64 11/07/24 11:50 Pulse Ox 96 11/07/24 11:50 FiO2 Intake & Output 11/06/24 11/07/24 11/07/24 18:59 06:59 18:59 Intake Total 9777 307 5821 Output Total 1 1 Balance 6310 590 5674 Intake: Oral 1500 1560 Tube Feeding 240 Output: Stool 1 1 Other: Voiding Method Toilet Toilet # Voids 4 3 5 # Bowel Movements 1 - Constitutional General appearance: Present: average body habitus, no acute distress - EENT Eyes: Present: anicteric sclerae, EOMI ENT: Present: hearing grossly normal - Respiratory Respiratory: bilateral: CTA - Cardiovascular Rhythm: regular - Gastrointestinal General gastrointestinal: Present: soft. Absent: tenderness - Integumentary Integumentary: Absent: cyanotic, jaundiced - Musculoskeletal Musculoskeletal Comment(s): BLE weakness, L>R, showing improvement. Sensation intact - Psychiatric Psychiatric: Present: A&O x's 3 - Labs CBC & Chem 7: 11/07/24 04:34 11/07/24 04:34 Labs: Abnormal Lab Results - Last 24 Hours (Table) 11/07/24 11/07/24 Range/Units 04:34 04:34 RBC 2.59 L (4.10-5.20) X 10*6/uL Hgb 8.5 L (12.0-15.0) g/dL Hct 24.1 L (37.2-46.3) % MCH 32.8 H (27.0-32.0) pg RDW 17.5 H (11.5-14.5) % Plt Count 75 L (140-440) X 10*3/uL MPV 8.9 L (9.5-12.2) FL Lymphocytes # (Manual) 0.07 L (0.90-5.00) X 10*3/uL Eosinophils # (Manual) 0 L (0.04-0.35) X 10*3/uL NRBC/100 WBC Diff 0.21 H (0.00-0.01) X 10*3/uL Microcytosis (manual) 2+ A (None Seen) Sodium 129 L (135-145) mmol/L Carbon Dioxide 20.3 L (21.6-31.8) mmol/L Anion Gap 12.70 H (4.00-12.00) mmol/L BUN 27.3 H (9.0-27.0) mg/dL Creatinine 0.5 L (0.6-1.5) mg/dL BUN/Creatinine Ratio 54.60 H (12.00-20.00) Ratio Glucose 245 H (70-110) mg/dL Calcium 8.6 L (8.7-10.3) mg/dL - Imaging and Cardiology MRI - head: report reviewed Assessment and Plan (1) Dehydration Current Visit: Yes Status: Acute Priority: High Code(s): E86.0 - DEHYDRATION SNOMED Code(s): 62980161 (2) Hyponatremia Current Visit: Yes Status: Acute Priority: High Code(s): E87.1 - HYPO-OSMOLALITY AND HYPONATREMIA SNOMED Code(s): 83383931 (3) Metastatic primary lung cancer Current Visit: Yes Status: Acute Priority: High Code(s): C34.90 - MA LIGNANT NEOPLASM OF UNSP PART OF UNSP BRONCHUS OR LUNG SNOMED Code(s): 93 465411 Plan: Weakness, hyponatremia: Presented with progressing weakness over the last 1 week, decreased appetite and nausea. Patient states nausea has since subsided but decreased oral intake has persisted due to taste changes. Currently on decadron taper, 4mg BID -Sodium was noted at 121 on admit. Of note she has previously been seen for the same and was on 1.5 L fluid restriction. Appears to be a component of SIADH. Nephrology following. Sodium today 129, sodium supplementation ordered -Despite improvement in sodium, pt reports only mild improvement in symptoms. 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 Case discussed with rad onc. Will obtain MRI brain, and MRI T/L spine to further evaluate. Brain MRI showing partial positive treatment response. MRI T/L spine pending -Symptoms likely multifactorail due to hyponatremia and steroid myopathy. Will c ontinue steroids at 4mg BID for additional 3 days and taper dose to 4mg once daily x 1 week -Increase oral intake as tolerated -PT/OT consulted. Will also place home care referral for PT/OT Metastatic NSCLC: -Oncology history as dictated in the HPI -Completed WBRT, recently started Krazati on 10/29/24 -Continue Krazati, will continue to monitor course of hospitalization -Clinic f/u upon discharge Attests: I have seen and examined pt, performed H&P, developed impression and plan of care. Discussed with dictator. Agree with documentation, dictated as a scribe.
--- NOTE | 2024-11-07 20:29 | P.PN ---
Subjective Patient is seen for follow-up for hyponatremia. Sodium is staying around 129. Patient is maintained on demeclocycline and sodium chloride tabs. Complaining of increased weakness today. Scheduled for MRI of the spine Objective - Vital Signs Vital signs: Vital Signs Temp 97.6 F 11/07/24 19:57 Pulse 78 11/07/24 19:57 Resp 16 11/07/24 19:57 BP 100/62 11/07/24 19:57 Pulse Ox 98 11/07/24 19:57 FiO2 Intake & Output 11/07/24 11/07/24 11/08/24 06:59 18:59 06:59 Intake Total 240 1800 Output Total 1 Balance 240 1799 Intake: Oral 1800 Tube Feeding 240 Output: Stool 1 Other: Voiding Method Toilet Toilet Toilet # Voids 3 5 # Bowel Movements 1 - Exam Patient is awake, comfortable, no acute distress. Examination of the heart S1 and S2 Examination of the lungs bilateral breath sounds are heard Abdomen is soft nontender Examination of lower extremity shows no evidence of edema - Labs CBC & Chem 7: 11/07/24 04:34 11/07/24 04:34 Labs: Abnormal Lab Results - Last 24 Hours (Table) 11/07/24 11/07/24 Range/Units 04:34 04:34 RBC 2.59 L (4.10-5.20) X 10*6/uL Hgb 8.5 L (12.0-15.0) g/dL Hct 24.1 L (37.2-46.3) % MCH 32.8 H (27.0-32.0) pg RDW 17.5 H (11.5-14.5) % Plt Count 75 L (140-440) X 10*3/uL MPV 8.9 L (9.5-12.2) FL Lymphocytes # (Manual) 0.07 L (0.90-5.00) X 10*3/uL Eosinophils # (Manual) 0 L (0.04-0.35) X 10*3/uL NRBC/100 WBC Diff 0.21 H (0.00-0.01) X 10*3/uL Microcytosis (manual) 2+ A (None Seen) Sodium 129 L (135-145) mmol/L Carbon Dioxide 20.3 L (21.6-31.8) mmol/L Anion Gap 12.70 H (4.00-12.00) mmol/L BUN 27.3 H (9.0-27.0) mg/dL Creatinine 0.5 L (0.6-1.5) mg/dL BUN/Creatinine Ratio 54.60 H (12.00-20.00) Ratio Glucose 245 H (70-110) mg/dL Calcium 8.6 L (8.7-10.3) mg/dL Assessment and Plan Assessment: 1. Hyponatremia initially hypovolemic and improved with saline. Patient definitely has an underlying component of SIADH and sodium improved significantly with Samsca but dropped again. Currently maintained on demeclocycline and sodium chloride tabs. She seems to be responding well.. 2. Metastatic lung cancer with mets to the brain 3. Hypothyroidism maintained on supplementation Plan: Repeat sodium later this evening and in a.m. Maintain fluid restriction about 1.5 to 2 L/day Continue with increased protein intake
[2024-11-07] MEDS: SODIUM CHLORIDE TAB 1 GM TAB PO STA (22:47)
[2024-11-08] MEDS: CYANOCOBALAMIN 1,000 MCG/ML 1 ML VIAL IM ONE (09:13)
[2024-11-08] MEDS: FOLIC ACID 1 MG TAB PO SCH (09:13)
--- NOTE | 2024-11-08 12:16 | P.PN ---
Subjective Patient is seen for follow-up for hyponatremia. Sodium is staying around 126-129. Patient is maintained on demeclocycline and sodium chloride tabs. Complaining of increased weakness today. Status post MRI of the spine. Neurology on consult. Objective - Vital Signs Vital signs: Vital Signs Temp 98.1 F 11/08/24 12:11 Pulse 85 11/08/24 12:11 Resp 16 11/08/24 12:11 BP 105/63 11/08/24 12:11 Pulse Ox 97 11/08/24 12:11 FiO2 Intake & Output 11/07/24 11/08/24 11/08/24 18:59 06:59 18:59 Intake Total 1800 240 237 Output Total 1 Balance 1799 240 237 Intake: Oral 1800 240 237 Output: Stool 1 Other: Voiding Method Toilet Toilet Toilet # Voids 5 2 # Bowel Movements 1 - Exam Patient is awake, comfortable, no acute distress. Examination of the heart S1 and S2 Examination of the lungs bilateral breath sounds are heard Abdomen is soft nontender Examination of lower extremity shows no evidence of edema - Labs CBC & Chem 7: 11/07/24 04:34 11/08/24 06:19 Labs: Abnormal Lab Results - Last 24 Hours (Table) 11/07/24 11/07/24 11/07/24 Range/Units 18:36 18:36 20:53 Sodium 126 L (137-145) mmol/L Hemoglobin A1c 6.8 H (<=6.0) % TSH 0.019 L (0.350-5.500) UIU/ML 11/08/24 Range/Units 06:19 Sodium 128 L (137-145) mmol/L Hemoglobin A1c (<=6.0) % TSH (0.350-5.500) UIU/ML Assessment and Plan Assessment: 1. Hyponatremia initially hypovolemic and improved with saline. Patient definitely has an underlying component of SIADH and sodium improved significantly with Samsca but dropped again. Currently maintained on demeclocycline and sodium chloride tabs. She seems to be responding well.. 2. Metastatic lung cancer with mets to the brain 3. Hypothyroidism maintained on supplementation Plan: Continue sodium chloride tabs and demeclocycline Repeat sodium later this evening and in a.m. Maintain fluid restriction about 1.5 to 2 L/day Continue with increased protein intake
--- NOTE | 2024-11-08 13:12 | P.PN ---
Subjective Progress Note Date: 11/08/24 This is a pleasant 64 years old female with past medical history of metastatic lung cancer Presents because of generalized weakness x 6 weeks, she states her weakness started after she was started on steroids and got treatment for shingles. She feels nausea but no vomiting or diarrhea, no urinary complaint No chest pain dyspnea or coughing No headache dizziness or unilateral weakness Patient able to walk by self Patient feels little of stomach upset from the steroids Patient states that she fell last Sunday about 2 days ago Patient currently is afebrile Vital stable Labs including CBC, LFT mildly elevated with bilirubin 1.7, BMP is unremarkable except for low sodium of 121 INR and troponin are negative Influenza A and type B, RSV, SARS (coronavirus) are undetected lactic acid of 4.0 Chest x-ray showing no acute process EKG showing sinus rhythm at [address]-T changes 11/04/24 Patient who presents initially with weakness and found to have hyponatremia, her sodium improved initially with normal saline fluid, however started to decrease again. Patient states little improvement in her weakness. She stayed in bed most of the time. Urine sodium and osmolality pending Normal saline was stopped Patient started on given 1 dose of Samsca x 1 by nephrology team 11/05 pt feels weakness, improving secondary to hyponatremia Na went up to 131 after pt recived Samsca x1 dose today Na rechecked at 126 pt is srarted on sodium chloride tabs once dailiy and democlycline recheck sodium in the am labs 11/06/2024 Patient still complains from generalized weakness Yesterday she worked with physical/occupational therapy where she could walk in the hallway but with fatigue lower extremity Today patient still complains from weakness and mainly in her lower extremities, on examination she could not bend her both knees well. Oncology team requested MRI of the brain and of the spine. Because of there is suspicion of worsening weakness of the lower extremity we will going to consult neurology service as well Patient denies headache or dizziness. No chest pain or dyspnea. Sodium this morning was 127, recheck sodium now 11/07. Patient seen and examined. MRI brain done showed partially positive treatment response to known metastatic disease. Sodium level improved. 11/08. Patient seen and examined. Still complains of weakness of lower extremities. Neurology alert, checking for Lambert-Eaton myasthenic syndrome, also ordered B12 folate, MMA levels REVIEW OF SYSTEMS: CONSTITUTIONAL: No fever, no malaise,. CARDIOVASCULAR: No chest pain, no palpitations, no syncope. PULMONARY: No shortness of breath, no cough, GASTROINTESTINAL: No diarrhea, no nausea, no vomiting, no abdominal pain. NEUROLOGICAL: No headaches, no weakness, PHYSICAL EXAMINATION: GENERAL: The patient is alert and oriented x3, chronically ill looking HEENT: Pupils are round and equally reacting to light. EOMI. No scleral icterus. No conjunctival pallor. Normocephalic, atraumatic. No pharyngeal erythema. No thyromegaly. CARDIOVASCULAR: S1 and S2 present. No murmurs, rubs, or gallops. PULMONARY: Chest is clear to auscultation, no wheezing or crackles. ABDOMEN: Soft, nontender, nondistended, normoactive bowel sounds. No palpable organomegaly. MUSCULOSKELETAL: No joint swelling or deformity. EXTREMITIES: No cyanosis, clubbing, or pedal edema. NEUROLOGICAL: Cranial nerves II to XII intact, muscle strength is 1 x 5 in lower extremities and 5 out of 5 in upper SKIN: No rashes. 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 Continue same treatment. Continue with symptomatic treatment. Resume home medication. Monitor labs and vitals. DVT and GI prophylaxis. Further recommendations as per clinical course of the patient Dictation was produced using [employer] dictation software. please excuse any grammatical, word or spelling errors. Objective - Vital Signs Vital signs: Vital Signs Temp 98.3 F 11/08/24 07:27 Pulse 83 11/08/24 07:27 Resp 16 11/08/24 07:27 BP 123/72 11/08/24 07:27 Pulse Ox 97 11/08/24 07:27 FiO2 Intake & Output 11/07/24 11/08/24 11/08/24 18:59 06:59 18:59 Intake Total 1800 240 237 Output Total 1 Balance 1799 240 237 Intake: Oral 1800 240 237 Output: Stool 1 Other: Voiding Method Toilet Toilet Toilet # Voids 5 2 # Bowel Movements 1 - Labs CBC & Chem 7: 11/07/24 04:34 11/08/24 06:19 Labs: Abnormal Lab Results - Last 24 Hours (Table) 11/07/24 11/07/24 11/07/24 Range/Units 18:36 18:36 20:53 Sodium 126 L (137-145) mmol/L Hemoglobin A1c 6.8 H (<=6.0) % TSH 0.019 L (0.350-5.500) UIU/ML 11/08/24 Range/Units 06:19 Sodium 128 L (137-145) mmol/L Hemoglobin A1c (<=6.0) % TSH (0.350-5.500) UIU/ML
--- NOTE | 2024-11-09 09:22 | P.PN ---
Subjective Progress Note Date: 11/08/24 Patient was seen for a follow-up. Patient's multiple family members were present. Patient continues to feel very weak in the legs. No new concerns. Objective - Vital Signs Vital signs: Vital Signs Temp 98.1 F 11/08/24 12:11 Pulse 85 11/08/24 12:11 Resp 16 11/08/24 12:11 BP 105/63 11/08/24 12:11 Pulse Ox 97 11/08/24 12:11 FiO2 Intake & Output 11/07/24 11/08/24 11/08/24 18:59 06:59 18:59 Intake Total 2918 312 0709 Output Total 1 Balance 4647 636 1267 Intake: Oral 3928 677 9444 Output: Stool 1 Other: Voiding Method Toilet Toilet Toilet # Voids 5 2 4 # Bowel Movements 1 1 - Exam Examination remains unchanged. - Labs CBC & Chem 7: 11/09/24 05:34 11/11/24 05:16 Labs: Abnormal Lab Results - Last 24 Hours (Table) 11/07/24 11/07/24 11/07/24 Range/Units 18:36 18:36 20:53 Sodium 126 L (137-145) mmol/L Hemoglobin A1c 6.8 H (<=6.0) % TSH 0.019 L (0.350-5.500) UIU/ML 11/08/24 Range/Units 06:19 Sodium 128 L (137-145) mmol/L Hemoglobin A1c (<=6.0) % TSH (0.350-5.500) UIU/ML Assessment and Plan Assessment: * New onset weakness of the proximal muscles of lower limbs bilaterally. Symptoms started after patient received steroids, but has got worse after she developed hyponatremia. No evidence of spinal metastasis. Rule out steroid myopathy, proximal neuropathy, rule out Lambert-Eaton myasthenic syndrome. Rule out side effect of chemotherapy/immunotherapy * Metastatic lung cancer * Hyponatremia, SIADH, came with 121, now 129. * Cerebral metastasis * B12, folate deficiency * Hypertension * Ex tobacco use Plan: * MRI of the brain was performed yesterday, which revealed partial positive treatment response to known metastatic disease. On my review, there are multiple enhancing lesions, but not with significant mass effect in any. * MRI of the thoracic and lumbar spine has been completed, results still p ending. On my review, no significant spinal stenosis. Await official radiology report. There is a disc herniation at probable T4-T5 level, which is touching the spinal cord but no compression. * B12 322, folate 6.8, creatinine kinase 38, aldolase 5.1 normal, TSH 0.019, with normal free T4 0.96. We will defer to IM to address abnormal thyroid functions.. MMA 0.43 (elevated), B6 25, normal immunofixation electrophoresis showed no monoclonal protein. Await blood test for Lambert-Eaton myasthenic syndrome. * Patient has borderline B12 and folate levels. We will start replacement therapy. * Recommend patient follow-up with neurologist for EMG nerve conduction with repetitive stimulation for of bilateral lower limbs. * May need lumbar puncture, if evidence of polyneuropathy. * Continue to taper down prednisone, if possible. * PT and OT. * Treatment of hyponatremia as per IM and other specialties on board. * Dr. Anshu Thomas to resume neurology service from Sunday.
[2024-11-09] MEDS: CYANOCOBALAMIN 500 MCG TAB PO SCH (09:30)
[2024-11-09 09:44] LABS: ALT 61 U/L (8-44); AST 14 U/L (13-35); Albumin 3.7 g/dL (3.8-4.9); Albumin/Globulin Ratio 2.31 Ratio (1.60-3.17); Alkaline Phosphatase 39 U/L (41-126); BUN/Creat Ratio 62.25 Ratio (12.00-20.00); Blood Urea Nitrogen 24.9 mg/dL (9.0-27.0); Calcium 8.6 mg/dL (8.7-10.3); Carbon Dioxide 20.6 mmol/L (21.6-31.8); Chloride 98 mmol/L (96-109); Globulin 1.6 g/dL (1.6-3.3); Glucose 236 mg/dL (70-110); Sodium 130 mmol/L (135-145); Total Bilirubin 0.7 mg/dL (0.3-1.2); Total Protein 5.3 g/dL (6.2-8.2)
[2024-11-09 10:40] LABS: Basophils # (M) 0 X 10*3/uL (0.00-0.10); Eosinophils # (M) 0 X 10*3/uL (0.04-0.35); HCT 23.1 % (37.2-46.3); HGB 8.4 g/dL (12.0-15.0); Immature Platelet Fraction 1.7 % (1.1-6.1); Lymphocytes # (M) 0.14 X 10*3/uL (0.90-5.00); MCH 33.2 pg (27.0-32.0); MCHC 36.4 g/dL (32.0-37.0); MCV 91.3 FL (80.0-97.0); Mean Platelet Volume 8.9 FL (9.5-12.2); Metamyelocytes % 2 % (0-0); Microcytosis (M) 2+ (None Seen); Monocytes # (M) 0.21 X 10*3/uL (0.20-1.00); NRBC Per 100 WBC 0.21 X 10*3/uL (0.00-0.01); Neutrophils % (M) 92 %; Nucleated Red Blood Cells 2 /100 WBCS; Platelet Count 74 X 10*3/uL (140-440); Promyelocytes # (M) 0.07 k/uL (0); Promyelocytes % 1 %; RBC 2.53 X 10*6/uL (4.10-5.20); RDW 18.1 % (11.5-14.5); WBC 6.96 X 10*3/uL (4.50-10.00)
--- NOTE | 2024-11-09 12:15 | P.PN ---
Subjective Progress Note Date: 11/09/24 This is a pleasant 64 years old female with past medical history of metastatic lung cancer Presents because of generalized weakness x 6 weeks, she states her weakness started after she was started on steroids and got treatment for shingles. She feels nausea but no vomiting or diarrhea, no urinary complaint No chest pain dyspnea or coughing No headache dizziness or unilateral weakness Patient able to walk by self Patient feels little of stomach upset from the steroids Patient states that she fell last Sunday about 2 days ago Patient currently is afebrile Vital stable Labs including CBC, LFT mildly elevated with bilirubin 1.7, BMP is unremarkable except for low sodium of 121 INR and troponin are negative Influenza A and type B, RSV, SARS (coronavirus) are undetected lactic acid of 4.0 Chest x-ray showing no acute process EKG showing sinus rhythm at [address]-T changes 11/04/24 Patient who presents initially with weakness and found to have hyponatremia, her sodium improved initially with normal saline fluid, however started to decrease again. Patient states little improvement in her weakness. She stayed in bed most of the time. Urine sodium and osmolality pending Normal saline was stopped Patient started on given 1 dose of Samsca x 1 by nephrology team 11/05 pt feels weakness, improving secondary to hyponatremia Na went up to 131 after pt recived Samsca x1 dose today Na rechecked at 126 pt is srarted on sodium chloride tabs once dailiy and democlycline recheck sodium in the am labs 11/06/2024 Patient still complains from generalized weakness Yesterday she worked with physical/occupational therapy where she could walk in the hallway but with fatigue lower extremity Today patient still complains from weakness and mainly in her lower extremities, on examination she could not bend her both knees well. Oncology team requested MRI of the brain and of the spine. Because of there is suspicion of worsening weakness of the lower extremity we will going to consult neurology service as well Patient denies headache or dizziness. No chest pain or dyspnea. Sodium this morning was 127, recheck sodium now 11/07. Patient seen and examined. MRI brain done showed partially positive treatment response to known metastatic disease. Sodium level improved. 11/08. Patient seen and examined. Still complains of weakness of lower extremities. Neurology alert, checking for Lambert-Eaton myasthenic syndrome, also ordered B12 folate, MMA levels 11/09. Patient seen and examined. States she feels same as yesterday. Labs showed sodium 130, potassium 4, BUN 24.9, creatinine 0.4. Vital signs Stable REVIEW OF SYSTEMS: CONSTITUTIONAL: No fever, no malaise,. CARDIOVASCULAR: No chest pain, no palpitations, no syncope. PULMONARY: No shortness of breath, no cough, GASTROINTESTINAL: No diarrhea, no nausea, no vomiting, no abdominal pain. NEUROLOGICAL: As mentioned above PHYSICAL EXAMINATION: GENERAL: The patient is alert and oriented x3, chronically ill looking HEENT: Pupils are round and equally reacting to light. EOMI. No scleral icterus. No conjunctival pallor. Normocephalic, atraumatic. No pharyngeal erythema. No thyromegaly. CARDIOVASCULAR: S1 and S2 present. No murmurs, rubs, or gallops. PULMONARY: Chest is clear to auscultation, no wheezing or crackles. ABDOMEN: Soft, nontender, nondistended, normoactive bowel sounds. No palpable organomegaly. MUSCULOSKELETAL: No joint swelling or deformity. EXTREMITIES: No cyanosis, clubbing, or pedal edema. NEUROLOGICAL: Cranial nerves II to XII intact, muscle strength is 1 x 5 in lower extremities and 5 out of 5 in upper SKIN: No rashes. 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 Continue same treatment. Continue with symptomatic treatment. Resume home medication. Monitor labs and vitals. DVT and GI prophylaxis. Further recommendations as per clinical course of the patient Dictation was produced using [employer] dictation software. please excuse any grammatical, word or spelling errors. Objective - Vital Signs Vital signs: Vital Signs Temp 97.9 F 11/09/24 11:40 Pulse 85 11/09/24 11:40 Resp 16 11/09/24 11:40 BP 136/79 11/09/24 11:40 Pulse Ox 97 01/12/25 11:40 FiO2 Intake & Output 11/08/24 11/09/24 11/09/24 18:59 06:59 18:59 Intake Total 1494 240 240 Output Total 600 1 Balance 1494 -360 239 Intake: Oral 1494 240 240 Output: Urine 600 Stool 1 Other: Voiding Method Toilet Toilet Toilet # Voids 4 1 # Bowel Movements 1 - Labs CBC & Chem 7: 11/09/24 05:34 11/09/24 08:25 Labs: Abnormal Lab Results - Last 24 Hours (Table) 11/09/24 11/09/24 11/09/24 Range/Units 05:34 05:34 08:25 RBC 2.53 L (4.10-5.20) X 10*6/uL Hgb 8.4 L (12.0-15.0) g/dL Hct 23.1 L (37.2-46.3) % MCH 33.2 H (27.0-32.0) pg RDW 18.1 H (11.5-14.5) % Plt Count 74 L (140-440) X 10*3/uL MPV 8.9 L (9.5-12.2) FL Lymphocytes # (Manual) 0.14 L (0.90-5.00) X 10*3/uL Eosinophils # (Manual) 0 L (0.04-0.35) X 10*3/uL NRBC/100 WBC Diff 0.21 H (0.00-0.01) X 10*3/uL Microcytosis (manual) 2+ A (None Seen) Sodium 130 L 129 L (135-145) mmol/L Carbon Dioxide 20.6 L (21.6-31.8) mmol/L Creatinine 0.4 L (0.6-1.5) mg/dL BUN/Creatinine Ratio 62.25 H (12.00-20.00) Ratio Glucose 236 H (70-110) mg/dL Calcium 8.6 L (8.7-10.3) mg/dL ALT 61 H (8-44) U/L Alkaline Phosphatase 39 L (41-126) U/L Total Protein 5.3 L (6.2-8.2) g/dL Albumin 3.7 L (3.8-4.9) g/dL
[2024-11-09] MEDS: SENNOSIDES-DOCUSATE SODIUM 1 EACH TAB PO SCH (20:36)
--- NOTE | 2024-11-09 23:02 | P.PN ---
Subjective Patient is seen for follow-up for hyponatremia. Sodium is staying around 126-129. Patient is maintained on demeclocycline and sodium chloride tabs. Complaining of increased weakness today. Status post MRI of the spine. Neurology on consult. Objective - Vital Signs Vital signs: Vital Signs Temp 98.0 F 11/09/24 18:56 Pulse 86 11/09/24 18:56 Resp 16 11/09/24 18:56 BP 120/66 11/09/24 18:56 Pulse Ox 96 11/09/24 18:56 FiO2 Intake & Output 11/09/24 11/09/24 11/10/24 06:59 18:59 06:59 Intake Total 240 1500 240 Output Total 600 1 Balance -360 1499 240 Intake: Oral 240 1500 240 Output: Urine 600 Stool 1 Other: Voiding Method Toilet Toilet Bedpan # Voids 1 4 1 # Bowel Movements 1 - Exam Patient is awake, comfortable, no acute distress. Examination of lower extremity shows no evidence of edema - Labs CBC & Chem 7: 11/09/24 05:34 11/09/24 08:25 Labs: Abnormal Lab Results - Last 24 Hours (Table) 11/09/24 11/09/24 11/09/24 Range/Units 05:34 05:34 08:25 RBC 2.53 L (4.10-5.20) X 10*6/uL Hgb 8.4 L (12.0-15.0) g/dL Hct 23.1 L (37.2-46.3) % MCH 33.2 H (27.0-32.0) pg RDW 18.1 H (11.5-14.5) % Plt Count 74 L (140-440) X 10*3/uL MPV 8.9 L (9.5-12.2) FL Lymphocytes # (Manual) 0.14 L (0.90-5.00) X 10*3/uL Eosinophils # (Manual) 0 L (0.04-0.35) X 10*3/uL NRBC/100 WBC Diff 0.21 H (0.00-0.01) X 10*3/uL Microcytosis (manual) 2+ A (None Seen) Sodium 130 L 129 L (135-145) mmol/L Carbon Dioxide 20.6 L (21.6-31.8) mmol/L Creatinine 0.4 L (0.6-1.5) mg/dL BUN/Creatinine Ratio 62.25 H (12.00-20.00) Ratio Glucose 236 H (70-110) mg/dL Calcium 8.6 L (8.7-10.3) mg/dL ALT 61 H (8-44) U/L Alkaline Phosphatase 39 L (41-126) U/L Total Protein 5.3 L (6.2-8.2) g/dL Albumin 3.7 L (3.8-4.9) g/dL Assessment and Plan Assessment: 1. Hyponatremia initially hypovolemic and improved with saline. Patient definitely has an underlying component of SIADH and sodium improved significantly with Samsca but dropped again. Currently maintained on demeclocycline and sodium chloride tabs. She seems to be responding well.. 2. Metastatic lung cancer with mets to the brain 3. Hypothyroidism maintained on supplementation Plan: Continue sodium chloride tabs and demeclocycline Repeat sodium later this evening and in a.m. Maintain fluid restriction about 1.5 to 2 L/day Continue with increased protein intake
--- NOTE | 2024-11-10 09:06 | P.PN ---
Subjective Patient is seen in follow-up for hyponatremia. Sodium level 129 yesterday. Oral intake fair. No vomiting or diarrhea. Vital signs are stable. General: No acute distress. HEENT: Head exam is unremarkable. LUNGS: No audible rhonchi or wheezes. HEART: Rate and Rhythm are regular. ABDOMEN: Nontender. EXTREMITITES: No edema. Objective - Vital Signs Vital signs: Vital Signs Temp 97.6 F 11/10/24 07:10 Pulse 83 11/10/24 07:10 Resp 17 11/10/24 07:10 BP 113/65 11/10/24 07:10 Pulse Ox 98 11/10/24 07:10 FiO2 Intake & Output 11/09/24 11/10/24 11/10/24 18:59 06:59 18:59 Intake Total 1500 240 Output Total 1 Balance 1499 240 Intake: Oral 1500 240 Output: Stool 1 Other: Voiding Method Toilet Bedpan # Voids 4 1 # Bowel Movements 1 - Labs CBC & Chem 7: 11/09/24 05:34 11/09/24 08:25 Labs: Abnormal Lab Results - Last 24 Hours (Table) 11/09/24 11/09/24 Range/Units 05:34 05:34 RBC 2.53 L (4.10-5.20) X 10*6/uL Hgb 8.4 L (12.0-15.0) g/dL Hct 23.1 L (37.2-46.3) % MCH 33.2 H (27.0-32.0) pg RDW 18.1 H (11.5-14.5) % Plt Count 74 L (140-440) X 10*3/uL MPV 8.9 L (9.5-12.2) FL Lymphocytes # (Manual) 0.14 L (0.90-5.00) X 10*3/uL Eosinophils # (Manual) 0 L (0.04-0.35) X 10*3/uL Promyelocytes # (Man) 0.07 H (0) k/uL NRBC/100 WBC Diff 0.21 H (0.00-0.01) X 10*3/uL Microcytosis (manual) 2+ A (None Seen) Sodium 130 L (135-145) mmol/L Carbon Dioxide 20.6 L (21.6-31.8) mmol/L Creatinine 0.4 L (0.6-1.5) mg/dL BUN/Creatinine Ratio 62.25 H (12.00-20.00) Ratio Glucose 236 H (70-110) mg/dL Calcium 8.6 L (8.7-10.3) mg/dL ALT 61 H (8-44) U/L Alkaline Phosphatase 39 L (41-126) U/L Total Protein 5.3 L (6.2-8.2) g/dL Albumin 3.7 L (3.8-4.9) g/dL Assessment and Plan Plan: Assessment: 1. Hyponatremia. Euvolemic. Secondary to SIADH. Urine sodium 83 and urine osmolality 741. TSH low at 0.019 with normal free T4. Sodium level 129 yesterday. 2. Metastatic lung cancer. 3. Hypothyroidism maintained on Synthroid. Plan: Maintain demeclocycline and sodium chloride tab. Check a.m. cortisol level. Maintain fluid restriction. Repeat labs in the morning
[2024-11-10 11:39] LABS: Aldolase 5.1 U/L (1.2-7.6)
--- NOTE | 2024-11-10 11:56 | MR ---
EXAMINATION TYPE: MR bonifacio/larisa wo/w con DATE OF EXAM: 11/07/2024 1:22 PM COMPARISON: None. CLINICAL INDICATION: Female, 64 years old with history of BLE edema, tingling, met lung cancer;, Leg weakness, lung cancer, mets to brain, recent RT TECHNIQUE: Multi planar, multi sequence imaging was performed utilizing: T1-weighted, T2-weighted, a nd turbo inversion recovery imaging of the thoracic and lumbar spine. IV Contrast: 7 mL Gadobutrol (None, if empty) FINDINGS: Alignment: The thoracic and lumbar vertebral bodies have preserved heights and alignment. Cord: The conus medullaris and the distal spinal cord appear unremarkable with regards to their signa l intensity and morphology. Bones/Discs: Bone signal is within normal limits. Multilevel degenerative disc disease is noted and most pronounced at the L5-S1 with osteophyte formation and disc space narrowing.. Multilevel disc marbin iccation is present. Suspected bone marrow replacement at the levels of T4 T5 T6 and T7 possibly seco ndary to posttreatment change. THORACIC: A disc protrusion which mildly impresses upon the spine with osteophyte at T6-T7 Spinal cor d signal is maintained. Remainder of the spinal canal in the thoracic spine without evidence for sign ificant spinal canal or neural foraminal stenosis. LUMBAR: T12-L1: No evidence of significant spinal canal stenosis or neural foraminal stenosis. L1-L2: No evidence of significant spinal canal stenosis or neural foraminal stenosis. L2-L3: No evidence of significant spinal canal stenosis or neural foraminal stenosis. L3-L4: No evidence of significant spinal canal stenosis. Facet joint arthropathy mild bilateral neura l foraminal stenosis. L4-L5: No evidence of significant spinal canal stenosis. Facet joint arthropathy mild bilateral neura l foraminal stenosis. L5-S1: The disc is rounded posterior morphology without significant spinal canal stenosis. Facet join t arthropathy with mild neural foraminal stenosis. Other findings: None. IMPRESSION: 1. No definitive evidence of significant spinal canal stenosis. 2. Mild disc degeneration with associated osteoarthritic changes. 3. T6-T7 disc protrusion which impresses upon the spinal cord anteriorly. No evidence for abnormal co rd signal. No abnormal spinal cord enhancement 4. No evidence for disc herniation in the lumbar spine. 5. 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 [facility], , 11/10/2024 11:54 AM
[2024-11-10 13:19] VITALS: BMI 28.1
--- NOTE | 2024-11-10 16:26 | P.PN ---
Subjective Progress Note Date: 11/10/24 Principal diagnosis: Hyponatremia, dehydration. Metastatic non-small cell lung cancer In follow-up today patient reports significant difficulties with steroids, they make her very anxious, significant insomnia. She also had an episode of numbness/tingling in the legs last night that made her extremely anxious. Today she reports that she is able to move both of her lower extremities ever so slightly, prior, she could not move them at all. MRI of the T and L-spine was still pending when patient seen today. She denies any incontinence of urine or stool. Objective - Vital Signs Vital signs: Vital Signs Temp 98 F 11/10/24 14:00 Pulse 86 11/10/24 14:00 Resp 16 11/10/24 14:00 BP 111/63 11/10/24 14:00 Pulse Ox 97 11/10/24 14:00 FiO2 Intake & Output 11/09/24 11/10/24 11/10/24 18:59 06:59 18:59 Intake Total 1500 240 480 Output Total 1 Balance 1499 240 480 Weight 69.853 kg Intake: Oral 1500 240 480 Output: Stool 1 Other: Voiding Method Toilet Bedpan Bedpan # Voids 4 1 2 # Bowel Movements 1 - Constitutional General appearance: Present: average body habitus, cooperative, no acute distress - EENT Eyes: Present: anicteric sclerae, EOMI ENT: Present: hearing grossly normal - Respiratory Respiratory: bilateral: CTA - Cardiovascular Rhythm: regular Heart sounds: normal: S1, S2 Abnormal Heart Sounds: Absent: systolic murmur, diastolic murmur, rub, S3 Gallop, S4 Gallop, click, other - Peripheral edema foot Peripheral Edema: bilateral: None - Integumentary Integumentary: Present: normal - Neurologic Neurologic Comment(s): Bilateral lower extremities patient is able to move the legs slightly, no real strength in the legs - Musculoskeletal Musculoskeletal: Present: generalized weakness - Psychiatric Psychiatric: Present: A&O x's 3, appropriate affect, intact judgment & insight - Labs CBC & Chem 7: 11/09/24 05:34 11/09/24 08:25 Labs: Abnormal Lab Results - Last 24 Hours (Table) 11/09/24 Range/Units 05:34 Promyelocytes # (Man) 0.07 H (0) k/uL Assessment and Plan (1) Dehydration Current Visit: Yes Status: Acute Priority: High Code(s): E86.0 - DEHYDRATION SNOMED Code(s): 05328201 (2) Hyponatremia Current Visit: Yes Status: Acute Priority: High Code(s): E87.1 - HYPO- OSMOLALITY AND HYPONATREMIA SNOMED Code(s): 93550345 (3) Metastatic primary lung cancer Current Visit: Yes Status: Acute Priority: High Code(s): C34.90 - MALIGNANT NEOPLASM OF UNSP PART OF UNSP BRONCHUS OR LUNG SNOMED Code(s): 56821589 Plan: Hyponatremia -Secondary to lung cancer -Nephrology is following. -Demeclocycline as well as NaCl tablets are ordered K-tracey G12C mutated non-small cell lung cancer -Diagnosis and treatment as documented in medical consult -WBRT completed. -Oral treatment with targeted agent adrian 10/29/2024-cont as prescribed -Patient on a dexamethasone taper, most recent dose 4 mg twice daily. Decrease Dex to 4 mg daily, see how pt does. -MRI of the T and L-spine reports an impression of no evidence of significant spinal canal stenosis, disc degeneration with associated OA changes, T6-T7 disc protrusion that impresses upon the spinal cord anteriorly, no evidence for abnor mal cord signal no evidence for disc herniation in the lumbar spine, myelofibrosis T4-T7. Will review these results with the patient tomorrow. Okay for dex taper. Hopefully will be able to continue to get patient off dex since it is causing her significant side effects-insomnia, irritability, proximal muscle weakness.
--- NOTE | 2024-11-10 18:42 | P.PN ---
Progress Note - Text Progress Note Date: 11/10/24 Dr. Pang has been following up with the patient during this hospital admission. Please refer to his note for further details. Seems the patient had MRI thoracic and lumbar spine and pending official report. I personally called radiology MRI team and notified him about the pending report
[2024-11-10] MEDS: LORazepam 1 MG TAB PO PRN (21:29)
[2024-11-11 05:11] LABS: Methylmalonic Acid 0.43 umol/L (<0.40)
[2024-11-11] MEDS: dexAMETHasone 4 MG TAB PO SCH (08:55)
--- NOTE | 2024-11-11 09:13 | P.PN ---
Subjective Progress Note Date: 11/10/24 This is a pleasant 64 years old female with past medical history of metastatic lung cancer Presents because of generalized weakness x 6 weeks, she states her weakness started after she was started on steroids and got treatment for shingles. She feels nausea but no vomiting or diarrhea, no urinary complaint No chest pain dyspnea or coughing No headache dizziness or unilateral weakness Patient able to walk by self Patient feels little of stomach upset from the steroids Patient states that she fell last Sunday about 2 days ago Patient currently is afebrile Vital stable Labs including CBC, LFT mildly elevated with bilirubin 1.7, BMP is unremarkable except for low sodium of 121 INR and troponin are negative Influenza A and type B, RSV, SARS (coronavirus) are undetected lactic acid of 4.0 Chest x-ray showing no acute process EKG showing sinus rhythm at [address]-T changes 11/04/24 Patient who presents initially with weakness and found to have hyponatremia, her sodium improved initially with normal saline fluid, however started to decrease again. Patient states little improvement in her weakness. She stayed in bed most of the time. Urine sodium and osmolality pending Normal saline was stopped Patient started on given 1 dose of Samsca x 1 by nephrology team 11/05 pt feels weakness, improving secondary to hyponatremia Na went up to 131 after pt recived Samsca x1 dose today Na rechecked at 126 pt is srarted on sodium chloride tabs once dailiy and democlycline recheck sodium in the am labs 11/06/2024 Patient still complains from generalized weakness Yesterday she worked with physical/occupational therapy where she could walk in the hallway but with fatigue lower extremity Today patient still complains from weakness and mainly in her lower extremities, on examination she could not bend her both knees well. Oncology team requested MRI of the brain and of the spine. Because of there is suspicion of worsening weakness of the lower extremity we will going to consult neurology service as well Patient denies headache or dizziness. No chest pain or dyspnea. Sodium this morning was 127, recheck sodium now 11/07. Patient seen and examined. MRI brain done showed partially positive treatment response to known metastatic disease. Sodium level improved. 11/08. Patient seen and examined. Still complains of weakness of lower extremities. Neurology alert, checking for Lambert-Eaton myasthenic syndrome, also ordered B12 folate, MMA levels 11/09. Patient seen and examined. States she feels same as yesterday. Labs showed sodium 130, potassium 4, BUN 24.9, creatinine 0.4. Vital signs Stable 11/10/2024 Patient is seen in follow-up today reports to continued weakness currently awaiting updated notes from PT/OT therapy for possible ECF. Case management/social work following working on discharge planning. Patient also being followed by oncology and will follow-up in the outpatient setting. REVIEW OF SYSTEMS: CONSTITUTIONAL: No fever, no malaise,. CARDIOVASCULAR: No chest pain, no palpitations, no syncope. PULMONARY: No shortness of breath, no cough, GASTROINTESTINAL: No diarrhea, no nausea, no vomiting, no abdominal pain. NEUROLOGICAL: As mentioned above PHYSICAL EXAMINATION: GENERAL: The patient is alert and oriented x3, chronically ill looking HEENT: Pupils are round and equally reacting to light. EOMI. No scleral icterus. No conjunctival pallor. Normocephalic, atraumatic. No pharyngeal erythema. No thyromegaly. CARDIOVASCULAR: S1 and S2 present. No murmurs, rubs, or gallops. PULMONARY: Chest is clear to auscultation, no wheezing or crackles. ABDOMEN: Soft, nontender, nondistended, normoactive bowel sounds. No palpable organomegaly. MUSCULOSKELETAL: No joint swelling or deformity. EXTREMITIES: No cyanosis, clubbing, or pedal edema. NEUROLOGICAL: Cranial nerves II to XII intact, muscle strength is 1 x 5 in lower extremities and 5 out of 5 in upper SKIN: No rashes. 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 Possible worsening weakness of the lower extremities Elevated lactic acid, improved Metastatic lung cancer status post recent radiation and chemotherapy GI prophylaxis DVT prophylaxis Full code Plan: Patient being followed by oncology along with case management working on possible ECF as patient continues to have significant weakness Patient to follow-up with oncology outpatient once discharged from ECF Recommend PT/OT therapy daily and increase activity as tolerated Will follow-up on repeat labs Possible discharge planning in the next 24 hours Dictation was produced using Pal[employer]ation software. please excuse any grammatical, word or spelling errors. The impression and plan of care has been dictated by Alysia Royal, Nurse Practitioner as directed. Dr. Orestes MD I have performed a history and examination and MDM of this patient, discussed the same with the dictator, and agree with the dictator's assessment and plan as written ,documented as a scribe. Based on total visit time, I have performed more than 50% of the visit. Mild chronic Objective - Vital Signs Vital signs: Vital Signs Temp 97.6 F 11/10/24 07:10 Pulse 83 11/10/24 07:10 Resp 17 11/10/24 07:10 BP 113/65 11/10/24 07:10 Pulse Ox 98 11/10/24 07:10 FiO2 Intake & Output 11/09/24 11/10/24 11/10/24 18:59 06:59 18:59 Intake Total 1500 240 Output Total 1 Balance 1499 240 Intake: Oral 1500 240 Output: Stool 1 Other: Voiding Method Toilet Bedpan Bedpan # Voids 4 1 # Bowel Movements 1 - Labs CBC & Chem 7: 11/09/24 05:34 11/09/24 08:25 Labs: Abnormal Lab Results - Last 24 Hours (Table) 11/09/24 Range/Units 05:34 Promyelocytes # (Man) 0.07 H (0) k/uL
[2024-11-11 09:23] LABS: BUN/Creat Ratio 60.25 Ratio (12.00-20.00); Blood Urea Nitrogen 24.1 mg/dL (9.0-27.0); Calcium 8.9 mg/dL (8.7-10.3); Carbon Dioxide 19.5 mmol/L (21.6-31.8); Chloride 97 mmol/L (96-109); Glucose 202 mg/dL (70-110); Magnesium 2.3 mg/dL (1.5-2.4); Potassium 3.7 mmol/L (3.5-5.5); Sodium 130 mmol/L (135-145)
--- NOTE | 2024-11-11 11:22 | P.PN ---
Subjective Patient is seen in follow-up for hyponatremia. Sodium level 130. Oral intake fair. No vomiting or diarrhea. Vital signs are stable. General: No acute distress. HEENT: Head exam is unremarkable. LUNGS: No audible rhonchi or wheezes. HEART: Rate and Rhythm are regular. ABDOMEN: Nontender. EXTREMITITES: No edema. Objective - Vital Signs Vital signs: Vital Signs Temp 97.8 F 11/11/24 07:21 Pulse 81 11/11/24 07:21 Resp 15 11/11/24 07:21 BP 108/65 11/11/24 07:21 Pulse Ox 97 11/11/24 07:21 FiO2 Intake & Output 11/10/24 11/11/24 11/11/24 18:59 06:59 18:59 Intake Total 720 590 Balance 720 590 Weight 69.853 kg Intake: Oral 720 590 Other: Voiding Method Bedpan Bedpan # Voids 2 1 1 - Labs CBC & Chem 7: 11/09/24 05:34 11/11/24 05:16 Labs: Abnormal Lab Results - Last 24 Hours (Table) 11/07/24 11/11/24 Range/Units 18:36 05:16 Sodium 130 L (135-145) mmol/L Carbon Dioxide 19.5 L (21.6-31.8) mmol/L Anion Gap 13.50 H (4.00-12.00) mmol/L Creatinine 0.4 L (0.6-1.5) mg/dL BUN/Creatinine Ratio 60.25 H (12.00-20.00) Ratio Glucose 202 H (70-110) mg/dL Methylmalonic Acid 0.43 H (<0.40) umol/L Cortisol <1.5 L (3.1-22.4) UG/DL Assessment and Plan Plan: Assessment: 1. Hyponatremia. Euvolemic. Secondary to SIADH. Urine sodium 83 and urine osmolality 741. TSH low at 0.019 with normal free T4. Cortisol level noted to be low however patient is on dexamethasone and is expected. Sodium level 130 today. 2. Metastatic lung cancer. 3. Hypothyroidism maintained on Synthroid. Plan: Maintain demeclocycline and sodium chloride tab. Maintain fluid restriction. Repeat BMP and magnesium level 2 to 3 days postdischarge. Follow-up outpatient in 1 week.
[2024-11-11] MEDS: ZINC OXIDE PASTE (Z-GUARD) 1 APPLIC TOPICAL PRN (16:01)
--- NOTE | 2024-11-11 16:06 | P.PN ---
Subjective Progress Note Date: 11/11/24 Principal diagnosis: Hyponatremia, dehydration. Metastatic non-small cell lung cancer In follow-up today patient reports better nigh sleep and less restlessness of legs last night with steroid decrease and addition of ativan at HS. She is moving her legs even more today then yesterday. Reviewed results of MRI of the T and L-spine-neg for cord compression. Objective - Vital Signs Vital signs: Vital Signs Temp 97.8 F 11/11/24 14:00 Pulse 56 L 11/11/24 14:00 Resp 18 11/11/24 14:00 BP 126/72 11/11/24 14:00 Pulse Ox 95 11/11/24 14:00 FiO2 Intake & Output 11/10/24 11/11/24 11/11/24 18:59 06:59 18:59 Intake Total 720 590 240 Output Total 1 Balance 720 590 239 Weight 69.853 kg Intake: Oral 720 590 240 Output: Stool 1 Other: Voiding Method Bedpan Bedpan Bedpan # Voids 2 1 1 - Constitutional General appearance: Present: average body habitus, cooperative, no acute distress - EENT Eyes: Present: anicteric sclerae, EOMI ENT: Present: hearing grossly normal - Respiratory Respiratory: bilateral: CTA - Cardiovascular Rhythm: regular - Peripheral edema leg Peripheral Edema: bilateral: None - Integumentary Integumentary: Present: pale - Neurologic Neurologic: Present: CNII-XII intact (grossly) - Musculoskeletal Musculoskeletal Comment(s): BLE weakness, improved - Psychiatric Psychiatric: Present: A&O x's 3, appropriate affect, intact judgment & insight - Labs CBC & Chem 7: 11/09/24 05:34 11/11/24 05:16 Labs: Abnormal Lab Results - Last 24 Hours (Table) 11/07/24 11/11/24 Range/Units 18:36 05:16 Sodium 130 L (135-145) mmol/L Carbon Dioxide 19.5 L (21.6-31.8) mmol/L Anion Gap 13.50 H (4.00-12.00) mmol/L Creatinine 0.4 L (0.6-1.5) mg/dL BUN/Creatinine Ratio 60.25 H (12.00-20.00) Ratio Glucose 202 H (70-110) mg/dL Methylmalonic Acid 0.43 H (<0.40) umol/L Cortisol <1.5 L (3.1-22.4) UG/DL - Imaging and Cardiology MRI T & L spine report reviewed Assessment and Plan (1) Dehydration Current Visit: Yes Status: Acute Priority: High Code(s): E86.0 - DEHYDRATION SNOMED Code(s): 66494451 (2) Hyponatremia Current Visit: Yes Status: Acute Priority: High Code(s): E87.1 - HYPO-OSMO LALITY AND HYPONATREMIA SNOMED Code(s): 59224252 (3) Metastatic primary lung cancer Current Visit: Yes Status: Acute Priority: High Code(s): C34.90 - MALIGNANT NEOPLASM OF UNSP PART OF UNSP BRONCHUS OR LUNG SNOMED Code(s): 22233031 Plan: Hyponatremia -Secondary to lung cancer/SIADH -Stable at 130 -Nephrology is following. -Demeclocycline as well as NaCl tablets are ordered K-tracey G12C mutated non-small cell lung cancer -Diagnosis and treatment as documented in medical consult -WBRT completed. -Oral treatment with targeted agent adrain 10/29/2024-cont as prescribed -Patient on a dexamethasone taper, most recent dose 4 mg twice daily. Decrease Dex to 4 mg 11/10/24-pt did well. Cont taper over the next 13 days -MRI of the T and L-spine reports an impression of no evidence of significant spinal canal stenosis, disc degeneration with associated OA changes, T6-T7 disc protrusion that impresses upon the spinal cord anteriorly, no evidence for abnormal cord signal no evidence for disc herniation in the lumbar spine, myelofibrosis T4-T7. Reviewed results with the patient and . Okay for dex taper, no cord compression. Agree with rehab, pt anxious to go. Port flush ordered
--- NOTE | 2024-11-11 16:54 | P.CNOR ---
History of Present Illness - [facility] Consult date: 11/11/24 Requesting physician: Anshu Thomas Consult reason: other (disc protrusion and myelofibrosis on MRI) History of present illness: Patient is a 64-year-old female who presented to the emergency department [facility] on 11/03/2023 due to generalized weakness, poor appetite and nausea. Patient does have a history of lung cancer with brain metastases symptoms have been progressive over the past several weeks. Patient is currently on Decadron and had recently completed 10 days of whole brain radiation and currently on chemo. Patient has had generalized weakness over the past couple months patient states she believes her weakness started after she began taking steroids. Patient states there is weakness in the bilateral lower extremities. Orthopedics was consulted from neurology due to findings on MRI of thoracic/lumbar spine. Patient does have a history of hyponatremia and was admitted to the [facility] about a month ago due to this and once again here she does have hyponatremia. Patient has not been able to walk over the past week due to the weakness in her legs. Patient states she has numbness in both legs going from the knees down to the feet. Patient denies any back pain. Patient denies any previous orthopedic spine surgery. Patient denies any loss o f bowel/bladder control or saddle anesthesia. Patient does report some nausea and chills. No chest pain or shortness of breath. Past Medical History Past Medical History: Cancer, Hypertension, Thyroid Disorder Additional Past Medical History / Comment(s): Lung CA with mets to brain as of August 2024 History of Any Multi-Drug Resistant Organisms: None Reported Past Surgical History: Hysterectomy Past Psychological History: No Psychological Hx Reported Smoking Status: Former smoker Past Alcohol Use History: Occasional Past Drug Use History: None Reported Medications and Allergies Home Medications Medication Instructions Recorded Confirmed Type Adagrasib [Krazati] 600 mg PO BID 11/03/24 11/03/24 History Ergocalciferol (Vitamin D2) 1,250 mcg PO WE 11/03/24 11/03/24 History [Drisdol (50,000 Iu)] Ipratropium/Albuter 20-100Mcg 1 puff INHALATION RT-Q6H PRN MDD 6 11/03/24 11/03/24 History [Combivent Respimat 20-100Mcg PUFFS Inhaler] L.acidoph,Paracasei, B.lactis 1 cap PO DAILY 11/03/24 11/03/24 History [Probiotic] Levothyroxine Sodium [Synthroid] 75 mcg PO DAILY 11/03/24 11/03/24 History Lisinopril-Hctz 20-25 mg 1 tab PO DAILY 11/03/24 11/03/24 History [Zestoretic 20-25] Ondansetron [Zofran] 4 - 8 mg PO Q4H PRN MDD 8 tabs 11/03/24 11/03/24 History Pantoprazole [Protonix] 40 mg PO DAILY 11/03/24 11/03/24 History amLODIPine [Norvasc] 5 mg PO DAILY 11/03/24 11/03/24 History dexAMETHasone [Decadron] See Taper PO DIRECTED #9 tab 11/11/24 Rx Allergies Allergy/AdvReac Type Severity Reaction Status Date / Time ceftriaxone [From Rocephin] Allergy Rash/Hives, Verified 11/03/24 12:59 Tongue swelling Physical Examination Inspection: Negative for any open fractures, significant erythema. There are c ouple scabs along the thoracic spine in the paravertebral region. Sensation: Diminished from the bilateral knees extending distally. Sensation is equal, symmetric, by intact throughout the rest the extremities on exam. Palpation: Nontender to palpation on exam. Range of motion: Full range of motion throughout bilateral upper extremities on exam. Patient unable to passively flex/extend bilateral hips/knees as well as plantar/dorsiflex ankles. Patient does have good range of motion throughout bilateral lower extremities on passive range of motion exam. Motor: 4/5 in all major motor groups in bilateral upper extremities. 3-/5 in all major motor groups in bilateral lower extremities. Neurovascular: Radial pulse intact, 2+ bilaterally. DP pulses palpable bilaterally Special test: Negative Homans bilaterally. Negative clonus bilaterally. Negative Alie bilaterally. Results - Labs Labs: Abnormal Lab Results - Last 24 Hours (Table) 11/07/24 11/11/24 Range/Units 18:36 05:16 Sodium 130 L (135-145) mmol/L Carbon Dioxide 19.5 L (21.6-31.8) mmol/L Anion Gap 13.50 H (4.00-12.00) mmol/L Creatinine 0.4 L (0.6-1.5) mg/dL BUN/Creatinine Ratio 60.25 H (12.00-20.00) Ratio Glucose 202 H (70-110) mg/dL Methylmalonic Acid 0.43 H (<0.40) umol/L Cortisol <1.5 L (3.1-22.4) UG/DL H & H 11/03/24 11/04/24 11/04/24 Range/Units 12:59 03:57 07:55 Hgb 11.0 L 9.0 L 9.7 L (11.4-16.0) gm/dL Hct 29.3 L 24.3 L 26.8 L (34.0-46.0) % 11/07/24 11/09/24 Range/Units 04:34 05:34 Hgb 8.5 L 8.4 L (11.4-16.0) gm/dL Hct 24.1 L 23.1 L (34.0-46.0) % Coagulation 11/03/24 Range/Units 12:59 INR 0.9 (<1.2) Result Diagrams: 11/09/24 05:34 11/11/24 05:16 - Diagnostic results Lumbar MRI with contrast: report reviewed, image reviewed (Negative for any significant central canal stenosis throughout the thoracic and lumbar spine. There is some generalized degenerative disc disease as well as spondylosis. Disc protrusion at T6/T7. T4-T7 myelofibrosis.) Assessment and Plan Assessment: 1. Bilateral lower extremity weakness; degenerative disc disease; thoracolumbar spondylosis; metastatic lung cancer Plan: 1. Bilateral lower extremity weakness; degenerative disc disease; thoracolumbar spondylosis; metastatic lung cancer - MRI of the thoracic and lumbar spine has been reviewed. Negative for any significant central canal stenosis throughout the thoracic and lumbar spine. There is some generalized degenerative disc disease as well as spondylosis. Disc protrusion at T6/T7. T4-T7 myelofibrosis. I will discuss the findings from the imaging and exam with my attending, Dr. Caceres before proceeding with any potential intervention. At this time we are not recommending any urgent/emergent orthopedic surgical intervention. We recommend conservative measures with the use of pain medication and PT/OT. further recommendations to follow 2. Appreciate medical, neurology, oncology management 3. Pain management -Tylenol 4. DVT prophylaxis -mechanical 5. GI prophylaxis -senna; Protonix; Tums 6. PT/OT -encouraged to perform gentle range of motion exercises while resting in bed. 7. Encourage incentive spirometer use 8. Appreciate consult Time with Patient: Less than 30
[2024-11-12 03:51] VITALS: RESP 16
--- NOTE | 2024-11-12 05:56 | P.PN ---
Subjective Progress Note Date: 11/11/24 This is a pleasant 64 years old female with past medical history of metastatic lung cancer Presents because of generalized weakness x 6 weeks, she states her weakness started after she was started on steroids and got treatment for shingles. She feels nausea but no vomiting or diarrhea, no urinary complaint No chest pain dyspnea or coughing No headache dizziness or unilateral weakness Patient able to walk by self Patient feels little of stomach upset from the steroids Patient states that she fell last Sunday about 2 days ago Patient currently is afebrile Vital stable Labs including CBC, LFT mildly elevated with bilirubin 1.7, BMP is unremarkable except for low sodium of 121 INR and troponin are negative Influenza A and type B, RSV, SARS (coronavirus) are undetected lactic acid of 4.0 Chest x-ray showing no acute process EKG showing sinus rhythm at [address]-T changes 11/04/24 Patient who presents initially with weakness and found to have hyponatremia, her sodium improved initially with normal saline fluid, however started to decrease again. Patient states little improvement in her weakness. She stayed in bed most of the time. Urine sodium and osmolality pending Normal saline was stopped Patient started on given 1 dose of Samsca x 1 by nephrology team 11/05 pt feels weakness, improving secondary to hyponatremia Na went up to 131 after pt recived Samsca x1 dose today Na rechecked at 126 pt is srarted on sodium chloride tabs once dailiy and democlycline recheck sodium in the am labs 11/06/2024 Patient still complains from generalized weakness Yesterday she worked with physical/occupational therapy where she could walk in the hallway but with fatigue lower extremity Today patient still complains from weakness and mainly in her lower extremities, on examination she could not bend her both knees well. Oncology team requested MRI of the brain and of the spine. Because of there is suspicion of worsening weakness of the lower extremity we will going to consult neurology service as well Patient denies headache or dizziness. No chest pain or dyspnea. Sodium this morning was 127, recheck sodium now 11/07. Patient seen and examined. MRI brain done showed partially positive treatment response to known metastatic disease. Sodium level improved. 11/08. Patient seen and examined. Still complains of weakness of lower extremities. Neurology alert, checking for Lambert-Eaton myasthenic syndrome, also ordered B12 folate, MMA levels 11/09. Patient seen and examined. States she feels same as yesterday. Labs showed sodium 130, potassium 4, BUN 24.9, creatinine 0.4. Vital signs Stable 11/10/2024 Patient is seen in follow-up today reports to continued weakness currently awaiting updated notes from PT/OT therapy for possible ECF. Case management/social work following working on discharge planning. Patient also being followed by oncology and will follow-up in the outpatient setting. 11/11/2024 Patient is seen in follow-up today being followed by oncology along with nephrology for hyponatremia. Sodium is stable at 130 and is continued on sodium chloride tab per nephrology. Patient reports she is feeling a little more movement in her lower extremities although continues with significant weakness. Patient was evaluated by physical therapy recommending rehab and patient is agreeable. Patient has been accepted at [facility] pending insuranc e authorization. Social work is following and authorization remains pending at this time. Recommend PT/OT therapy daily and increased activity as tolerated with sitting up in the chair more often. Patient is afebrile with no reports of chest pain or shortness of breath. REVIEW OF SYSTEMS: CONSTITUTIONAL: No fever, no malaise,. CARDIOVASCULAR: No chest pain, no palpitations, no syncope. PULMONARY: No shortness of breath, no cough, GASTROINTESTINAL: No diarrhea, no nausea, no vomiting, no abdominal pain. NEUROLOGICAL: As mentioned above PHYSICAL EXAMINATION: GENERAL: The patient is alert and oriented x3, well-developed, elderly appearing, chronically ill looking HEENT: Pupils are round and equally reacting to light. EOMI. No scleral icterus. No conjunctival pallor. Normocephalic, atraumatic. No pharyngeal erythema. No thyromegaly. CARDIOVASCULAR: S1 and S2 muffled PULMONARY: Diminished breath sounds bilaterally otherwise chest is clear to auscultation, no wheezing or crackles. ABDOMEN: Soft, nontender, nondistended, normoactive bowel sounds. No palpable organomegaly. MUSCULOSKELETAL: No joint swelling or deformity. EXTREMITIES: No cyanosis, clubbing, or pedal edema. NEUROLOGICAL: Cranial nerves II to XII intact, muscle strength is 1 x 5 in lower extremities and 5 out of 5 in upper SKIN: No rashes. 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 Patient has been accepted at [facility] pending insurance authorization. Social work has submitted and remains pending at this time. Will follow-up in the a.m. regarding possible discharge planning in the next 24 hours Patient to follow-up with oncology outpatient once discharged from ECF Recommend PT/OT therapy daily and increase activity as tolerated Will follow-up on repeat labs Possible discharge planning in the next 24 hours The impression and plan of care has been dictated by Nurse Mariusz Pra ctitioner as directed. Dr. Jennifer MD I have performed a history and examination and MDM of this patient, discussed the same with the dictator, and agree with the dictator's assessment and plan as written ,documented as a scribe. Based on total visit time, I have performed more than 50% of the visit. Mild chronic Objective - Vital Signs Vital signs: Vital Signs Temp 97.8 F 11/11/24 07:21 Pulse 81 11/11/24 07:21 Resp 15 11/11/24 07:21 BP 108/65 11/11/24 07:21 Pulse Ox 97 11/11/24 07:21 FiO2 Intake & Output 11/10/24 11/11/24 11/11/24 18:59 06:59 18:59 Intake Total 720 590 Balance 720 590 Weight 69.853 kg Intake: Oral 720 590 Other: Voiding Method Bedpan Bedpan # Voids 2 1 - Labs CBC & Chem 7: 11/09/24 05:34 11/11/24 05:16 Labs: Abnormal Lab Results - Last 24 Hours (Table) 11/07/24 Range/Units 18:36 Methylmalonic Acid 0.43 H (<0.40) umol/L
[2024-11-12 07:48] VITALS: BP 103/62; PULSE 83; TEMP 98.1
--- NOTE | 2024-11-12 11:15 | P.PN ---
Subjective Patient is seen in follow-up for hyponatremia. Sodium level 130 as of yesterday. Oral intake fair. No vomiting or diarrhea. Vital signs are stable. General: No acute distress. HEENT: Head exam is unremarkable. LUNGS: No audible rhonchi or wheezes. HEART: Rate and Rhythm are regular. ABDOMEN: Nontender. EXTREMITITES: No edema. Objective - Vital Signs Vital signs: Vital Signs Temp 98.1 F 11/12/24 07:00 Pulse 83 11/12/24 07:00 Resp 16 11/12/24 07:00 BP 103/62 11/12/24 07:00 Pulse Ox 98 11/12/24 07:00 FiO2 Intake & Output 11/11/24 11/12/24 11/12/24 18:59 06:59 18:59 Intake Total 480 580 Output Total 901 0 Balance -421 580 Intake: Oral 480 580 Output: Urine 900 Stool 1 0 Other: Voiding Method Bedpan Bedpan # Voids 1 1 # Bowel Movements 1 - Labs CBC & Chem 7: 11/09/24 05:34 11/11/24 05:16 Assessment and Plan Plan: Assessment: 1. Hyponatremia. Euvolemic. Secondary to SIADH. Urine sodium 83 and urine osmolality 741. TSH low at 0.019 with normal free T4. Cortisol level noted to be low however patient is on dexamethasone and is expected. Sodium level 130 as of yesterday. 2. Metastatic lung cancer. 3. Hypothyroidism maintained on Synthroid. Plan: Maintain demeclocycline and sodium chloride tab. Maintain fluid restriction. Repeat BMP and magnesium level 2 to 3 days postdischarge. Follow-up outpatient in 1 week.
--- NOTE | 2024-11-12 13:34 | P.DS ---
Providers Date of admission: 11/03/24 14:21 Expected date of discharge: 11/12/24 Attending physician: Elliot Perea MD Consults: 11/03/24 14:21 Consult Physician Routine Consulting Provider: Krishan Mcconnell Consult Reason/Comments: Metastatic lung CA Do you want consulting provider notified?: Yes Consult Physician Routine Consulting Provider: Yamile Walter Consult Reason/Comments: Metastatic lung CA, hyponatremia, dehydration Do you want consulting provider notified?: Yes 11/06/24 11:22 Consult Physician Urgent Consulting Provider: Beck Pang Consult Reason/Comments: lower ext weakness Do you want consulting provider notified?: Yes 11/10/24 18:39 Consult Physician Routine Consulting Provider: Norman Caceres Consult Reason/Comments: disc protrusion and myelofibrosis on MRI Do you want consulting provider notified?: Yes Primary care physician: Physician Nonstaff Hospital Course: Final diagnosis Generalized weakness with fall hyponatremia, stable at 130 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 . Patient will follow-up with Dr. Rogers in the outpatient setting upon discharge. Patient is to continue with current medications per nephrology and outpatient follow-up with repeat CMP, CBC, magnesium in 2 to 3 days. Patient to follow-up with nephrology in 1 to 2 weeks as scheduled. Patient will follow-up with orthopedics as needed outpatient and is agreeable to follow-up with oncology once discharged from ECF. Patient is aware she will not receiving any oncological care during ECF. Total time taken is greater than 35 minutes. Hospital course This is a 64-year-old female who was recently admitted with generalized weakness with falls and dehydration noted to have significant hyponatremia. Patient being followed by nephrology along with oncology as patient has metastatic lung cancer and is status postchemotherapy and radiation treatment. Patient sodium slightly improved and at 130 maintained on sodium chloride tablets and will continue per nephrology. Recommending outpatient repeat labs in the next few days and continuing current regimen. Patient is agreeable to no oncological care during ECF and will be following up in the outpatient setting once discharged. Patient with progressive weakness and prolonged hospitalization with recurrent falls was evaluated by physical therapy recommending rehab and patient is agreeable. Patient has been accepted at [facility] in [place] and insurance authorization was obtained. Please refer to other consultation notes for further HPI. Currently no reports of chest pain, short ness of breath, or palpitations. Patient is afebrile. No reports of nausea or vomiting and patient is tolerating diet. Patient will continue on a Decadron taper as written on discharge medication reconciliation. Patient will be going to [facility] today. Physical exam: Gen: This is a 64-year-old female who is awake, alert and oriented x 3, well- developed, elderly appearing, ill-appearing HEENT: Head is atraumatic, normocephalic. Pupils equal, round. Sclerae is anicteric. NECK: Supple. No JVD. No lymphadenopathy. No thyromegaly. LUNGS: Diminished breath sounds bilaterally otherwise clear to auscultation. No wheezes or rhonchi. No intercostal retractions. HEART: Regular rate and rhythm. No murmur. ABDOMEN: Soft. Bowel sounds are present. No masses. No tenderness. EXTREMITIES: No pedal edema. No calf tenderness. Lower extremities diffusely weak with difficulty walking. NEUROLOGICAL: Patient is awake, alert and oriented x3. Cranial nerves 2 through 12 are grossly intact. Please refer to medication reconciliation sheet for a list of medications. The impression and plan of care has been dictated by Alysia Royal, Nurse Practitioner as directed. Dr. Jennifer MD I have performed a history and examination and MDM of this patient, discussed the same with the dictator, and agree with the dictator's assessment and plan as written ,documented as a scribe. Based on total visit time, I have performed more than 50% of the visit. Patient Condition at Discharge: Stable Plan - Discharge Summary New Discharge Prescriptions: New Demeclocycline [Declomycin] 300 mg PO BID tab Sennosides-Docusate Sodium [Senokot-S] 2 each PO BID tab Cyanocobalamin [Vitamin B-12] 1,000 mcg PO DAILY tab LORazepam [Ativan] 1 mg PO HS PRN #2 tab PRN Reason: Anxiety Folic Acid 1 mg PO DAILY tab Sodium Chloride Tab 1 gm PO DAILY tab Calcium Carbonate [Tums] 1,000 mg PO TID PRN tab PRN Reason: Heartburn Acetaminophen Tab [Tylenol] 650 mg PO Q6HR PRN tab PRN Reason: Mild Pain Or Fever > 100.5 Continue amLODIPine [Norvasc] 5 mg PO DAILY Ergocalciferol (Vitamin D2) [Drisdol (50,000 Iu)] 1,250 mcg PO WE Levothyroxine Sodium [Synthroid] 75 mcg PO DAILY Pantoprazole [Protonix] 40 mg PO DAILY dexAMETHasone [Decadron] See Taper PO DIRECTED #9 tab Ondansetron [Zofran] 4 - 8 mg PO Q4H PRN MDD 8 tabs PRN Reason: Nausea Adagrasib [Krazati] 600 mg PO BID Ipratropium/Albuter 20-100Mcg [Combivent Respimat 20-100Mcg Inhaler] 1 puff INHALATION RT-Q6H PRN MDD 6 PUFFS PRN Reason: Shortness Of Breath Discontinued L.acidoph,Paracasei, B.lactis [Probiotic] 1 cap PO DAILY Lisinopril-Hctz 20-25 mg [Zestoretic 20-25] 1 tab PO DAILY Discharge Medication List Adagrasib [Krazati] 600 mg PO BID 11/03/24 [History] Ergocalciferol (Vitamin D2) [Drisdol (50,000 Iu)] 1,250 mcg PO WE 11/03/24 [History] Ipratropium/Albuter 20-100Mcg [Combivent Respimat 20-100Mcg Inhaler] 1 puff INHALATION RT-Q6H PRN MDD 6 PUFFS 11/03/24 [History] Levothyroxine Sodium [Synthroid] 75 mcg PO DAILY 11/03/24 [History] Ondansetron [Zofran] 4 - 8 mg PO Q4H PRN MDD 8 tabs 11/03/24 [History] Pantoprazole [Protonix] 40 mg PO DAILY 11/03/24 [History] amLODIPine [Norvasc] 5 mg PO DAILY 11/03/24 [History] dexAMETHasone [Decadron] See Taper PO DIRECTED #9 tab 11/11/24 [Rx] Acetaminophen Tab [Tylenol] 650 mg PO Q6HR PRN tab 11/12/24 [Rx] Calcium Carbonate [Tums] 1,000 mg PO TID PRN tab 11/12/24 [Rx] Cyanocobalamin [Vitamin B-12] 1,000 mcg PO DAILY tab 11/12/24 [Rx] Demeclocycline [Declomycin] 300 mg PO BID tab 11/12/24 [Rx] Folic Acid 1 mg PO DAILY tab 11/12/24 [Rx] LORazepam [Ativan] 1 mg PO HS PRN #2 tab 11/12/24 [Rx] Sennosides-Docusate Sodium [Senokot-S] 2 each PO BID tab 11/12/24 [Rx] Sodium Chloride Tab 1 gm PO DAILY tab 11/12/24 [Rx] Follow up Appointment(s)/Referral(s): Trina Garcia NPC [Nurse Practitioner] - 11/25/24 10:15 am (This appt is with [facility] at office located at [address] [place] [address], ) Nonstaff,Physician [Primary Care Provider] - 1-2 days Norman Caceres DO [Doctor of Osteopathic Medicine] - 2 Weeks Dalton Prieto DO [STAFF PHYSICIAN] - 1 Week Ambulatory/Diagnostic Orders: Comprehensive Metabolic Panel [LAB.AMB] Time Frame: 3 Days, Location: None Selected Activity/Diet/Wound Care/Special Instructions: Patient is going to [facility] Activity as tolerated Follow-up with orthopedics outpatient as needed Follow-up with nephrology in 1 to 2 weeks Recommend repeat labs of CBC, CMP, magnesium in 2 to 3 days to monitor sodium levels Continue regular diet with fluid restrictions of 45 ounces daily Follow-up with oncology once discharged from ECF Steroid taper Rx in med list. Cont 4mg daily until 11/16, then 2mg daily for 7 days, then stop Discharge Disposition: TRANSFER TO SNF/ECF
--- NOTE | 2024-11-12 15:02 | P.PN ---
Subjective Progress Note Date: 11/12/24 I am seeing the patient for the first time during this hospital admission. Please refer to Dr. Pang's note for further details. Patient has history of metastatic lung cancer and patient has been on statements for least the limit more than 2-month according to her and she has been having significant weakness in her extremities predominantly. She noticed minimal improvements in strength since being in the hospital. Objective - Vital Signs Vital signs: Vital Signs Temp 98.1 F 11/12/24 07:00 Pulse 83 11/12/24 07:00 Resp 16 11/12/24 07:00 BP 103/62 11/12/24 07:00 Pulse Ox 98 11/12/24 07:00 FiO2 Intake & Output 11/11/24 11/12/24 11/12/24 18:59 06:59 18:59 Intake Total 480 580 Output Total 901 0 Balance -421 580 Intake: Oral 480 580 Output: Urine 900 Stool 1 0 Other: Voiding Method Bedpan Bedpan Bedpan # Voids 1 1 # Bowel Movements 1 - Exam General: Lying in bed and is not in acute distress. Neuro: Awake alert oriented to self place and time. Is following simple commands. No aphasia Pupils are round equal reactive to light. Visual santoyo are full to confrontation. Extraocular moods intact no nystagmus. No facial weakness. No dysarthria The motor strength is somewhat limited but is lifting bilateral upper extremities above gravity equally. In the lower extremity patient has significant weakness proximally more than distally. Was able to lift up left upper extremity above gravity slightly. In lowers proximally: its about 1-2 on the right and on the left is about a 2-3. Ankles are 3-4 - Labs CBC & Chem 7: 11/09/24 05:34 11/11/24 05:16 Assessment and Plan Assessment: * New onset weakness of the proximal muscles of lower limbs bilaterally. Symptoms started after patient received steroids, but has got worse after she developed hyponatremia. No evidence of spinal metastasis. Unknown exact etiology:Steroid myopathy vs brain mets vs proximal neuropathy vsrule out Lambert-Eaton myasthenic syndrome vs chemotherapy/immunotherapy * Metastatic lung cancer * Hyponatremia, SIADH, came with 121-->130 * Cerebral metastasis * Hypertension * Ex tobacco use Plan: * MRI of the brain was performed yesterday, which revealed partial positive treatment response to known metastatic disease. On my review, there are multiple enhancing lesions, but not with significant mass effect in any. * MRI of the thoracic and lumbar: Interpreted as no definitive evidence of significant spinal canal stenosis. Mild disc degeneration with associated osteoarthritic changes. C6-C7 disc protrusion which impresses upon the spinal cord anteriorly. No evidence for abnormal cord signal. No abnormal signal cord enhancement. No evidence for disc herniation in the lumbar spine. 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 * PDX surgery team is consulted and they reviewed the images and they did not feel there is any significant central canal stenosis throughout the thoracic and lumbar spine. Recommended conservative management. * B12 322, folate 6.8, creatinine kinase 38, aldolase, TSH 0.019, with normal free T4 0.96. We will defer to IM to address abnormal thyroid functions.. Await MMA, B6, aldolase, immunofixation electrophoresis. Also await blood test for Lambert-Eaton myasthenic syndrome. * Patient has borderline B12 and folate levels. We will start replacement therapy. * Recommend patient follow-up with neurologist for EMG nerve conduction with repetitive stimulation for of bilateral lower limbs. * May need lumbar puncture, if evidence of polyneuropathy. * Continue to taper down prednisone, if possible per Dr. Pang. * PT and OT. * Treatment of hyponatremia as per IM and other specialties on board. * Upon discharge recommend the patient to follow-up with a neurologist as an outpatient within 2 weeks The plan is discussed with patient and her ex- who is at bedside. Will follow-up sporadically. Time with Patient: Less than 30
--- NOTE | 2024-11-12 17:56 | P.PN ---
Subjective Progress Note Date: 11/12/24 Principal diagnosis: Hyponatremia, dehydration. Metastatic non-small cell lung cancer In follow-up today patient cont to have movement in the BLE, generalized weakness in the thighs. No neurological symptoms to report, no swelling, numbness or tingling in the legs. Objective - Vital Signs Vital signs: Vital Signs Temp 98.1 F 11/12/24 07:00 Pulse 83 11/12/24 07:00 Resp 16 11/12/24 07:00 BP 103/62 11/12/24 07:00 Pulse Ox 98 11/12/24 07:00 FiO2 Intake & Output 11/11/24 11/12/24 11/12/24 18:59 06:59 18:59 Intake Total 480 580 Output Total 901 0 Balance -421 580 Intake: Oral 480 580 Output: Urine 900 Stool 1 0 Other: Voiding Method Bedpan Bedpan Bedpan # Voids 1 1 1 # Bowel Movements 1 1 - Constitutional General appearance: Present: average body habitus, cooperative, no acute distress - EENT Eyes: Present: anicteric sclerae, EOMI ENT: Present: hearing grossly normal - Respiratory Details: resp even and unlabored - Cardiovascular Details: skin warm, well perfused, radial pulse 2+, regular - Peripheral edema leg Peripheral Edema: bilateral: None - Neurologic Neurologic: Present: CNII-XII intact (grossly) - Musculoskeletal Musculoskeletal: Present: generalized weakness (in legs ) - Psychiatric Psychiatric: Present: A&O x's 3, appropriate affect, intact judgment & insight - Labs CBC & Chem 7: 11/09/24 05:34 11/11/24 05:16 Assessment and Plan (1) Dehydration Status: Resolved Priority: High Code(s): E86.0 - DEHYDRATION SNOMED Code(s): 21001230 (2) Hyponatremia Status: Chronic Priority: High Code(s): E87.1 - HYPO-OSMOLALITY AND HYPONATREMIA SNOMED Code(s): 56805298 (3) Metastatic primary lung cancer Status: Acute Priority: High Code(s): C34.90 - MALIGNANT NEOPLASM OF UNSP PART OF UNSP BRONCHUS OR LUNG SNOMED Code(s): 13661124 Plan: Hyponatremia -Secondary to lung cancer/SIADH -Stable at 130 -Nephrology is following. -Demeclocycline as well as NaCl tablets are ordered and will continue K-tracey G12C mutated non-small cell lung cancer -Diagnosis and treatment as documented in medical consult -WBRT completed. -Oral treatment with targeted agent adrian 10/29/2024-cont as prescribed -Patient on a dexamethasone taper, most recent dose 4 mg twice daily. Decrease Dex to 4 mg 11/10/24-pt did well. Cont taper over the next 13 days-orders placed in [place] for the same -MRI of the T and L-spine reports an impression of no evidence of significant spinal canal stenosis, disc degeneration with associated OA changes, T6-T7 disc protrusion that impresses upon the spinal cord anteriorly, no evidence for abnormal cord signal no evidence for disc herniation in the lumbar spine, myelofibrosis T4-T7. Okay for dex taper, no cord compression. Lower extremity weakness -[place] to be steroid myopathy exacerbated by generalized weakness from WBRT and hyponatremia -No cord compression on MRI -Cont steroid taper -Cont medications to increase sodium and fluid restriction-per Nephrology -Lower extremity weakness improving with steroid reduction and improved sodium levels -Agree with rehab.
--- NOTE | 2024-11-14 13:23 | CDI ---
Documentation Clarification Form Date: 11/14/2024 01:02:16 PM From: Yanely Gil RN, CCDS Email: [email or web address] Admit Date: 11/03/2024 02:21:00 PM Patient Name: Nola Stanford Visit Number: [id number] Discharge Date: 11/12/2024 03:23:00 PM ATTENTION: The Clinical Documentation Specialists (CDI) and [facility] Coding Staff appreciate your assistance in clarifying documentation. Please respond to the clarification below the line at the bottom and electronically sign. The CDI & [facility] Coding staff will review the response and follow-up if needed. Please note: Queries are made part of the Legal Health Record. If you have any questions, please contact the author of this message via ITS. Doctor Elliot E Sheet The patient has brain metastases and cerebral edema on imaging. Based on this information and the findings below, is there an additional diagnosis that is clinically appropriate for this patient? Patient history/risk factors: Metastatic lung cancer to the brain, underwent radiation therapy and HTN. Presented with weakness, poor appetite and nausea. 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 Clinical Indicators: ED: "Patient has known brain metastases and is currently on Decadron. She just completed 10 days of whole brain radiation and is currently on oral chemotherapy." 11/06 Brain MRI: Persistent but improving surrounding T2 hyperintensity or vasogenic edema is noted. There is persistent but smaller inferior left occipital lesion measuring 9 x 8 mm size image 74 decreased from 14 x 13 mm on prior study axial image 40. Other lesions stable or smaller in size with improving vasogenic edema. 11/04 Oncology: "Started Darvolumab infusion on September 01 2024 and developed progressive Psoriasis. She then was hospitalized at [facility] with left leg weakness, CT scan of head and then MRI showed multiple bilateral brain mets. She was started on IV Decadron and followed up with rad onc, and has since completed WBRT. Currently on dex taper, 4mg BID. She started Krazati on 10/29." 11/07 Neurology: "MRI of the brain was performed yesterday, which revealed partial positive treatment response to known metastatic disease." Treatment: Dexamethasone 4mg po BID 11/03-11/10; Dexamethasone 4mg po daily 11/11- 11/12; IV hydration for SIADH Is there an additional diagnosis that is clinically appropriate for this patient? [ x ] Vasogenic Cerebral edema is clinically significant and treated [ ] No additional diagnosis/not clinically significant [ ] Other, please specify [ ] Unable to determine MTDD
== END 2024-11-12 15:23 | DRG 643 ==
LOC: EC 11:56 → 5NMEDONC 14:21
PROVIDERS: ADMIT Internal Medicine; ATTEND Internal Medicine
PROC: 05HY33Z Insertion of Infusion Device into Upper Vein, Percutaneous Approach (ICD-10-PCS; principal; 2024-11-04 10:35)
DX: E22.2 Syndrome of inappropriate secretion of antidiuretic hormone (principal); G93.6 Cerebral edema; C79.31 Secondary malignant neoplasm of brain; D75.81 Myelofibrosis; E87.20 Acidosis, unspecified; C34.90 Malignant neoplasm of unspecified part of unspecified bronchus or lung; J70.4 Drug-induced interstitial lung disorders, unspecified; E86.0 Dehydration; E03.9 Hypothyroidism, unspecified; I10 Essential (primary) hypertension; Y84.2 Radiological procedure and radiotherapy as the cause of abnormal reaction of the patient, or of later complication, without mention of misadventure at the time of the procedure; R26.9 Unspecified abnormalities of gait and mobility; E86.1 Hypovolemia; G47.00 Insomnia, unspecified; M47.815 Spondylosis without myelopathy or radiculopathy, thoracolumbar region; R29.6 Repeated falls; L40.9 Psoriasis, unspecified; Z79.890 Hormone replacement therapy; Z20.822 Contact with and (suspected) exposure to COVID-19; Z79.899 Other long term (current) drug therapy; Z87.891 Personal history of nicotine dependence; Z60.2 Problems related to living alone; Z88.1 Allergy status to other antibiotic agents; Z28.310 Unvaccinated for COVID-19; Z28.21 Immunization not carried out because of patient refusal
CPT/HCPCS: 36410; 36415; 70553; 71046; 72157; 72158; 76937; 80048; 80051; 80053; 81003; 82085; 82533; 82550; 82607; 82746; 83036; 83605; 83735; 83921; 83935; 84207; 84295; 84300; 84439; 84443; 84484; 85025; 85610; 85730; 86334; 86596; 87636; 93005; 94760; 96360; 96361; 99285